=== PATIENT | female | born 1995 | race Caucasian/White ===

== ENCOUNTER 2016-11-22 15:41 | Observation (INO) | payer OTHER ==
[2016-11-22] MEDS ORDERED: Lactated Ringers 1,000 ML IV ONE (17:18)
[2016-11-22 17:52] LABS: BASOPHIL % 0.3 % (0.0-0.4); Eosinophil % 0.9 % (0.00-5.0); Granulocytes % 61.6 % (36.0-66.0); Lymphocytes % 30.3 % (24.0-44.0); Mean Cell Volume 83.6 fl (78-100); Mean Corpuscular Hemoglobin 26.8 pg (26-32); Mean Platelet Volume 10.3 fl (6-9.5); Monocytes % 6.9 % (0.0-12.0); Platelet Count 236 K/mm3 (150-450); Red Blood Count 4.14 M/mm3 (4.1-5.4); Red Cell Distribution Width 14.3 % (11.5-14.0); White Blood Count 10.2 K/mm3 (4.0-10.5)
[2016-11-22] MEDS ORDERED: Lactated Ringers 1,000 ML IV SCH (18:00)
[2016-11-22 18:18] LABS: ALBUMIN 2.9 g/dL (3.4-5.0); ALKALINE PHOSPHATASE 163 U/L (46-116); BILIRUBIN,TOTAL 0.3 mg/dL (0.2-1.0); BLOOD UREA NITROGEN 4 mg/dL (9-20); CHLORIDE 105 mEq/L (98-107); Carbon Dioxide 20.4 mEq/L (21-32); Glucose 98 MG/DL (70-110); Potassium 3.6 mEq/L (3.5-5.1); SGOT/AST 18 U/L (15-37); SGPT/ALT 10 U/L (12-78); SODIUM 137 mEq/L (136-145); Total Protein 7.5 gm/dL (6.4-8.2)
[2016-11-22 20:09] VITALS: BP 114/85; PULSE 88
== END 2016-11-22 21:25 | disposition home or self-care (01) ==
LOC: OB 15:41
PROVIDERS: ADMIT Family Medicine; ATTEND Family Medicine
DX: Z34.83 Encounter for supervision of other normal pregnancy, third trimester (principal)
CPT/HCPCS: 36415; 80053; 80307; 85025; G0378

== ENCOUNTER 2016-11-28 22:08 | Observation (INO) | payer OTHER ==
[2016-11-28 22:45] VITALS: BP 126/80; PULSE 113
== END 2016-11-28 23:45 | disposition home or self-care (01) ==
LOC: OB 22:08
PROVIDERS: ADMIT Family Medicine; ATTEND Family Medicine
DX: Z34.83 Encounter for supervision of other normal pregnancy, third trimester (principal)
CPT/HCPCS: G0378

== ENCOUNTER 2016-12-01 14:07 | Observation (INO) | payer OTHER ==
[2016-12-01 19:50] VITALS: BP 98/56; PULSE 85
== END 2016-12-01 19:35 | disposition home or self-care (01) ==
LOC: MED SURG 14:07
PROVIDERS: ADMIT Family Medicine; ATTEND Family Medicine
DX: Z34.83 Encounter for supervision of other normal pregnancy, third trimester (principal)
CPT/HCPCS: G0378

== ENCOUNTER 2016-12-14 09:02 | Inpatient (IN) | payer OTHER ==
[2016-12-14] MEDS ORDERED: BRETHINE 1 MG/ML SQ PRN (17:22)
[2016-12-14] MEDS ORDERED: XYLOCAINE 1% HCL 20 ML MDV IJ PRN (17:27)
[2016-12-14 19:28] LABS: BASOPHIL % 0.2 % (0.0-0.4); Eosinophil % 0.5 % (0.00-5.0); Granulocytes % 71.8 % (36.0-66.0); Lymphocytes % 22.1 % (24.0-44.0); Mean Corpuscular Hemoglobin 26.2 pg (26-32); Mean Platelet Volume 10.3 fl (6-9.5); Monocytes % 5.4 % (0.0-12.0); Platelet Count 232 K/mm3 (150-450); Red Blood Count 4.12 M/mm3 (4.1-5.4); White Blood Count 12.1 K/mm3 (4.0-10.5)
[2016-12-14] MEDS ORDERED: Cervidil 10 MG VAG SCH (22:00)
[2016-12-15] MEDS: Lactated Ringers 1,000 ML IV SCH (06:05)
[2016-12-15] MEDS: PITOCIN 30 UNITS/ LR 500 ML 30 UNITS/500 ML IV.SOLN. IV SCH (06:05)
[2016-12-15] MEDS ORDERED: Ephedrine Sulfate 50 MG/ML IV PRN (09:20)
[2016-12-15] MEDS ORDERED: Lactated Ringers 1,000 ML IV ONE (09:20)
[2016-12-15] MEDS ORDERED: OB EPIDURAL NAROPIN/SUFENTANIL IN NACL EPIDURAL PRN (09:20)
[2016-12-15] MEDS ORDERED: Restoril 15 MG PO PRN (12:32)
[2016-12-15] MEDS ORDERED: Ambien 10 MG PO PRN (12:32)
[2016-12-15] MEDS ORDERED: TYLENOL EXTRA STRENGTH 500 MG PO PRN (12:32)
[2016-12-15] MEDS ORDERED: Dermoplast Spray TP PRN (12:32)
[2016-12-15] MEDS ORDERED: CORTISONE 1% CREAM TP PRN (12:32)
[2016-12-15] MEDS ORDERED: Tylenol #3 Tablet PO PRN (12:32)
[2016-12-15] MEDS ORDERED: TUCKS TP PRN (12:32)
[2016-12-15] MEDS ORDERED: LANSINOH 40 GM TOP PRN (12:32)
[2016-12-15] MEDS: Colace 100 MG PO SCH (21:07)
[2016-12-16] MEDS: MOTRIN 400 MG PO PRN ×3 (01:54→20:58)
[2016-12-16 05:54] LABS: BASOPHIL % 0.2 % (0.0-0.4); Granulocytes % 59.7 % (36.0-66.0); Lymphocytes % 28.6 % (24.0-44.0); Mean Cell Volume 83.9 fl (78-100); Mean Corpuscular Hemoglobin 26.3 pg (26-32); Mean Platelet Volume 10.4 fl (6-9.5); Monocytes % 10.5 % (0.0-12.0); Platelet Count 175 K/mm3 (150-450); Red Blood Count 3.42 M/mm3 (4.1-5.4); Red Cell Distribution Width 14.9 % (11.5-14.0); White Blood Count 9.2 K/mm3 (4.0-10.5)
[2016-12-16] MEDS: PITOCIN 30 UNITS/ LR 500 ML 500 ML IV SCH ×2 (07:48→07:49)
[2016-12-16] MEDS: PITOCIN 30 UNITS/ LR 500 ML 30 UNITS/500 ML IV.SOLN. IV SCH (07:49)
[2016-12-16] MEDS: Lactated Ringers 1,000 ML IV SCH ×3 (07:49→07:51)
[2016-12-16] MEDS: FERREX 150 PO SCH (09:29)
[2016-12-16] MEDS: Colace 100 MG PO SCH (09:29)
[2016-12-17] MEDS: MOTRIN 400 MG PO PRN (05:45)
[2016-12-17] MEDS: Colace 100 MG PO SCH ×2 (06:03→08:36)
[2016-12-17] MEDS: FERREX 150 PO SCH (08:36)
--- NOTE | 2016-12-17 11:46 | PCM.DS ---
Discharge Summary Date of Admission: 12/15/16 09:02 Admitting Physician: KING OVIEDO Primary Care Provider: KING OVIEDO Allergies Allergies Cephalosporins Allergy (Verified 07/03/15 15:56) Hospital Summary - Hospital Course Hospital Course: patient delivered a viable female infant at 39 wks with no complications. doing great , mild lochia, pain is minimal. she is and well bonded with infant. - Vitals & Intake/Output Vital Signs: Vital Signs Temperature 97.6 F 12/17/16 08:00 Pulse Rate 76 12/17/16 08:00 Respiratory Rate 18 12/17/16 08:00 Blood Pressure 116/78 12/17/16 08:00 O2 Sat by Pulse Oximetry Intake & Output: Intake & Output 12/14/16 12/15/16 12/16/16 12/17/16 11:59 11:59 11:59 11:59 Intake Total 1590 Balance 1590 Weight 86.183 kg - Lab Result Diagrams: 12/16/16 05:00 Discharge Exam General Appearance: no apparent distress, alert Respiratory Exam: normal breath sounds, lungs clear, No respiratory distress Cardiovascular Exam: regular rate/rhythm, normal heart sounds Gastrointestinal/Abdomen Exam: soft, No tenderness, No mass Extremity Exam: normal inspection, normal range of motion Final Diagnosis/Problem List - Final Discharge Diagnosis/Problem (1) Vaginal delivery Current Visit: No Status: Acute (2) () Current Visit: No Status: Acute - Discharge Disposition: Home, Self-Care Condition: Stable Prescriptions: No Action Vitamins/Fe Sulf/FA [ Tablet] 1 tab PO DAILY Ranitidine HCl [Zantac 75] 1 tab PO DAILY
[2016-12-17 12:28] VITALS: BP 114/64; PULSE 82
== END 2016-12-17 12:55 | disposition home or self-care (01) | DRG 775 ==
LOC: OB 09:02 → UNDOADMOB 16:57 → OB 16:57 → OBSVTOIN 12-15 09:02
PROVIDERS: ADMIT Family Medicine; ATTEND Family Medicine
PROC: 10E0XZZ Delivery of Products of Conception, External Approach (ICD-10-PCS; principal; 2016-12-15)
DX: O80 Encounter for full-term uncomplicated delivery (principal); Z3A.39 39 weeks gestation of pregnancy; Z37.0 Single live birth
CPT/HCPCS: 01967; 36415; 80307; 85025; G0378; J2590; J2795; A9270-GY

== ENCOUNTER 2019-01-17 08:54 | Observation (INO) | payer OTHER ==
[2019-01-17 09:28] LABS: Appearance CLOUDY (CLEAR); Bacteria FEW /HPF (NEGATIVE); Bilirubin NEGATIVE (NEGATIVE); Blood NEGATIVE Ery/ul (0-5); Epithelial Cells FEW /HPF (FEW); Glucose NEGATIVE (NEGATIVE); Ketones MODERATE (NEGATIVE); Leukocyte Esterase LARGE (NEGATIVE); Mucus SLIGHT /HPF (NEGATIVE); Nitrite NEGATIVE (NEGATIVE); Non-Squamous Epithelial Cells FEW /HPF (FEW); Protein,Urine Dip 30 (Negative); Specific Gravity 1.018 (1.005-1.025); Urobilinogen NEGATIVE mg/dL (0-1)
[2019-01-17 09:37] LABS: Amphetamine,Urine NEGATIVE (NEGATIVE); Barbiturate,Urine NEGATIVE (NEGATIVE); Benzodiazepine,Urine NEGATIVE (NEGATIVE); Cocaine,Urine NEGATIVE (NEGATIVE); Methadone,Urine NEGATIVE (NEGATIVE); Opiate,Urine NEGATIVE (NEGATIVE); PCP,Urine NEGATIVE (NEGATIVE); THC,Urine NEGATIVE (NEGATIVE)
[2019-01-17] MEDS ORDERED: Lactated Ringers 1,000 ML IV ONE ×2 (09:59→16:40)
[2019-01-17] MEDS ORDERED: Unasyn 3GM / NaCl 100ML 3 GM/100 ML IVPB IV ONE (11:00)
[2019-01-17] MEDS: Lactated Ringers 1,000 ML IV SCH ×2 (13:29→16:48)
[2019-01-17] MEDS ORDERED: Zofran 4 MG/2 ML VIAL IV STA (13:30)
[2019-01-17] MEDS ORDERED: BRETHINE 1 MG/ML SQ ONE (13:30)
[2019-01-17 18:16] VITALS: BP 112/57; PULSE 126
== END 2019-01-17 19:14 | disposition home or self-care (01) ==
LOC: OB 08:54
PROVIDERS: ADMIT Family Medicine; ATTEND Family Medicine
DX: Z34.83 Encounter for supervision of other normal pregnancy, third trimester (principal)
CPT/HCPCS: 80307; 81001; 87086; G0378; J0295; J2405

== ENCOUNTER 2019-02-18 05:03 | Inpatient (IN) | payer OTHER ==
[~2019-02-18 05:03] MED LIST: BRETHINE 1 MG/ML SQ PRN; Lactated Ringers 1,000 ML IV SCH; PITOCIN 30 UNITS/ LR 500 ML 500 ML IV SCH; XYLOCAINE 1% HCL 20 ML MDV IJ PRN
[2019-02-18 06:01] LABS: BASOPHIL % 0.3 % (0.0-0.4); Basophil (Absolute #) 0.02 (0-0.4); Eosinophil % 1.2 % (0.00-5.0); Eosinophil (Absolute #) 0.09 (0-0.5); Granulocytes % 61.3 % (36.0-66.0); Hematocrit 30.6 % (35-47); Hemoglobin 9.5 gm/dl (12.0-16.0); Lymphocytes % 30.7 % (24.0-44.0); Mean Cell Volume 80.7 fl (78-100); Mean Platelet Volume 10.2 fl (6-9.5); Monocyte (Absolute #) 0.49 (0.0-1.3); Monocytes % 6.5 % (0.0-12.0); Platelet Count 219 K/mm3 (150-450); Red Blood Count 3.79 M/mm3 (4.1-5.4); Red Cell Distribution Width 15.8 % (11.5-14.0); White Blood Count 7.5 K/mm3 (4.0-10.5)
[2019-02-18 06:25] LABS: Amphetamine,Urine NEGATIVE (NEGATIVE); Barbiturate,Urine NEGATIVE (NEGATIVE); Benzodiazepine,Urine NEGATIVE (NEGATIVE); Cocaine,Urine NEGATIVE (NEGATIVE); Methadone,Urine NEGATIVE (NEGATIVE); Opiate,Urine NEGATIVE (NEGATIVE); PCP,Urine NEGATIVE (NEGATIVE); THC,Urine NEGATIVE (NEGATIVE)
[2019-02-18] MEDS ORDERED: OB EPIDURAL NAROPIN/SUFENTANIL IN NACL EPIDURAL PRN (09:14)
[2019-02-18] MEDS ORDERED: Ephedrine Sulfate 50 MG/ML IV PRN (09:14)
[2019-02-18] MEDS ORDERED: Lactated Ringers 1,000 ML IV ONE (09:14)
[2019-02-18] MEDS ORDERED: XYLOCAINE 2%/Epi 1:200000 20ML VIAL MPF ONE (09:34)
[2019-02-18 10:34] VITALS: O2SAT 100
[2019-02-18] MEDS ORDERED: Restoril 15 MG PO PRN (11:28)
[2019-02-18] MEDS ORDERED: Anucort-HC SUPPOSITORY PR PRN (11:28)
[2019-02-18] MEDS ORDERED: NORCO 5/325 MG PO PRN (11:28)
[2019-02-18] MEDS ORDERED: Mylicon 80MG PO PRN (11:28)
[2019-02-18] MEDS ORDERED: Dulcolax 10 MG SUPP PR PRN (11:28)
[2019-02-18] MEDS ORDERED: TUCKS TP PRN (11:28)
[2019-02-18] MEDS ORDERED: Dermoplast Spray TP PRN (11:28)
[2019-02-18] MEDS ORDERED: TYLENOL EXTRA STRENGTH 500 MG PO PRN (11:28)
[2019-02-18] MEDS ORDERED: LANSINOH 40 GM TOP PRN (11:28)
[2019-02-18] MEDS ORDERED: CORTISONE 1% CREAM TP PRN (11:28)
[2019-02-18] MEDS ORDERED: Colace 100 MG ONE (19:34)
[2019-02-18] MEDS: MOTRIN 400 MG PO PRN (19:35)
[2019-02-18] MEDS: Colace 100 MG PO SCH (19:35)
[2019-02-19] MEDS: MOTRIN 400 MG PO PRN ×3 (05:16→17:38)
[2019-02-19 06:50] LABS: BASOPHIL % 0.5 % (0.0-0.4); Basophil (Absolute #) 0.05 (0-0.4); Eosinophil % 1.5 % (0.00-5.0); Eosinophil (Absolute #) 0.14 (0-0.5); Granulocyte Absolute (ANC) 5.26 (1.4-6.9); Granulocytes % 56.8 % (36.0-66.0); Hemoglobin 8.1 gm/dl (12.0-16.0); Lymphocyte (Absolute #) 2.98 (1.0-4.6); Lymphocytes % 32.2 % (24.0-44.0); Mean Cell Volume 81.6 fl (78-100); Mean Platelet Volume 10.1 fl (6-9.5); Monocyte (Absolute #) 0.83 (0.0-1.3); Platelet Count 215 K/mm3 (150-450); Red Blood Count 3.31 M/mm3 (4.1-5.4); Red Cell Distribution Width 15.6 % (11.5-14.0); White Blood Count 9.3 K/mm3 (4.0-10.5)
[2019-02-19 06:54] LABS: Mean Corpuscular Hemoglobin 24.4 pg (26-32)
[2019-02-19] MEDS: Colace 100 MG PO SCH ×2 (08:37→23:02)
[2019-02-19] MEDS: FERREX 150 PO SCH (08:37)
[2019-02-20] MEDS: MOTRIN 400 MG PO PRN (00:45)
--- NOTE | 2019-02-20 09:25 | PCM.DS ---
Discharge Summary Date of Admission: 02/18/19 05:03 Admitting Physician: KING OVIEDO Primary Care Provider: KING OVIEDO Allergies Allergies Cephalosporins Allergy (Verified 01/17/19 10:12) Hospital Summary - Hospital Course Hospital Course: patient was admitted and had at 39 wks elective induction, no complications with delivery. well and well bonded with male infant. - Vitals & Intake/Output Vital Signs: Vital Signs Temperature 98.1 F 02/20/19 02:00 Pulse Rate 73 02/20/19 02:00 Respiratory Rate 18 02/20/19 02:00 Blood Pressure 108/64 02/20/19 02:00 O2 Sat by Pulse Oximetry 100 02/18/19 11:00 Intake & Output: Intake & Output 02/17/19 02/18/19 02/19/19 02/20/19 11:59 11:59 11:59 11:59 Intake Total 3242 Balance 3242 Weight 81.647 kg - Lab Result Diagrams: 02/19/19 06:15 Discharge Exam General Appearance: no apparent distress, alert Respiratory Exam: normal breath sounds, lungs clear, No respiratory distress Cardiovascular Exam: regular rate/rhythm, normal heart sounds Gastrointestinal/Abdomen Exam: soft, No tenderness, No mass Extremity Exam: normal inspection, normal range of motion Skin Exam: normal color, warm, dry Final Diagnosis/Problem List - Final Discharge Diagnosis/Problem (1) Vaginal delivery Current Visit: No Status: Acute Code(s): O80 - ENCOUNTER FOR FULL-TERM UNCOMPLICATED DELIVERY (2) (infant) Current Visit: No Status: Acute Code(s): Z78.9 - OTHER SPECIFIED HEALTH STATUS - Discharge Disposition: Home, Self-Care Condition: Stable Prescriptions: Continue Vitamins/Fe Sulf/FA [ Tablet] 1 tab PO DAILY Ranitidine HCl [Zantac 75] 1 tab PO DAILY PRN PRN Reason: heartburn Follow up with: KING OVIEDO MD [Primary Care Provider] - 1 Week
[2019-02-20] MEDS: FERREX 150 PO SCH (11:46)
[2019-02-20 15:49] VITALS: BP 112/70; PULSE 78
== END 2019-02-20 15:30 | disposition home or self-care (01) | DRG 807 ==
LOC: OB 05:03
PROVIDERS: ADMIT Family Medicine; ATTEND Family Medicine
PROC: 10E0XZZ Delivery of Products of Conception, External Approach (ICD-10-PCS; principal; 2019-02-18)
DX: O80 Encounter for full-term uncomplicated delivery (principal); Z37.0 Single live birth; Z3A.39 39 weeks gestation of pregnancy
CPT/HCPCS: 36415; 80307; 85025; G0378; J2590; J2795; A9270-GY

== ENCOUNTER 2020-09-04 10:54 | Observation (INO) | payer OTHER ==
[2020-09-04 12:15] LABS: Appearance SLIGHTLY CLOUDY (CLEAR); Bilirubin NEGATIVE (NEGATIVE); Blood NEGATIVE Ery/ul (0-5); Epithelial Cells RARE /HPF (FEW); Glucose NEGATIVE (NEGATIVE); Ketones NEGATIVE (NEGATIVE); Leukocyte Esterase SMALL (NEGATIVE); Mucus SLIGHT /HPF (NEGATIVE); Nitrite NEGATIVE (NEGATIVE); Protein,Urine Dip NEGATIVE (Negative); Specific Gravity 1.021 (1.005-1.025); Urobilinogen NEGATIVE mg/dL (0-1); WBC 0-2 /HPF (0-5)
--- NOTE | 2020-09-04 12:30 | XRAY ---
Indication: labor. Evaluate cervical length. Limited OB ultrasound demonstrates single viable intrauterine with heart rate 163 BPM. Cervix is closed and measures 3.8 cm in length.
[2020-09-04 15:23] VITALS: BP 108/57; PULSE 74; O2SAT 98
== END 2020-09-04 15:30 | disposition home or self-care (01) ==
LOC: OB 10:54
PROVIDERS: ADMIT Family Medicine; ATTEND Family Medicine
DX: Z34.83 Encounter for supervision of other normal pregnancy, third trimester (principal); Z3A.32 32 weeks gestation of pregnancy
CPT/HCPCS: 59025; 76815; 81001; 82731; G0378; 81003

== ENCOUNTER 2020-10-01 06:32 | Observation (INO) | payer OTHER ==
[2020-10-01 07:10] VITALS: O2SAT 100
[2020-10-01 07:41] LABS: Appearance CLEAR (CLEAR); Bilirubin NEGATIVE (NEGATIVE); Blood NEGATIVE Ery/ul (0-5); Epithelial Cells RARE /HPF (FEW); Glucose NEGATIVE (NEGATIVE); Ketones NEGATIVE (NEGATIVE); Leukocyte Esterase NEGATIVE (NEGATIVE); Mucus SLIGHT /HPF (NEGATIVE); Nitrite NEGATIVE (NEGATIVE); Protein,Urine Dip NEGATIVE (Negative); Specific Gravity 1.017 (1.005-1.025); Urobilinogen NEGATIVE mg/dL (0-1)
[2020-10-01 07:44] LABS: Amphetamine,Urine NEGATIVE (NEGATIVE); Barbiturate,Urine NEGATIVE (NEGATIVE); Benzodiazepine,Urine NEGATIVE (NEGATIVE); Cocaine,Urine NEGATIVE (NEGATIVE); Methadone,Urine NEGATIVE (NEGATIVE); Opiate,Urine NEGATIVE (NEGATIVE); PCP,Urine NEGATIVE (NEGATIVE); THC,Urine NEGATIVE (NEGATIVE)
[2020-10-01 09:50] VITALS: BP 115/67; PULSE 99
== END 2020-10-01 09:40 | disposition home or self-care (01) ==
LOC: OB 06:32
PROVIDERS: ADMIT Family Medicine; ATTEND Family Medicine
DX: Z34.83 Encounter for supervision of other normal pregnancy, third trimester (principal)
CPT/HCPCS: 80307; 81001; G0378

== ENCOUNTER 2020-10-14 08:49 | Inpatient (IN) | payer OTHER ==
[2020-10-14] MEDS ORDERED: Zofran 4 MG/2 ML VIAL IV PRN (10:18)
[2020-10-14] MEDS ORDERED: Phenergan 25 MG INJ IV PRN (10:18)
[2020-10-14] MEDS ORDERED: XYLOCAINE 1% HCL 20 ML MDV IJ PRN (10:18)
[2020-10-14] MEDS ORDERED: Lactated Ringers 1,000 ML IV ONE (10:24)
[2020-10-14] MEDS ORDERED: Ephedrine Sulfate 50 MG/ML IV PRN (10:24)
[2020-10-14] MEDS ORDERED: PITOCIN 30 UNITS/ LR 500 ML 30 UNITS/500 ML IV.SOLN. IV SCH ×2 (10:30→14:00)
[2020-10-14 10:59] LABS: Amphetamine,Urine NEGATIVE (NEGATIVE); Barbiturate,Urine NEGATIVE (NEGATIVE); Benzodiazepine,Urine NEGATIVE (NEGATIVE); Cocaine,Urine NEGATIVE (NEGATIVE); Methadone,Urine NEGATIVE (NEGATIVE); Opiate,Urine NEGATIVE (NEGATIVE); PCP,Urine NEGATIVE (NEGATIVE); THC,Urine NEGATIVE (NEGATIVE)
[2020-10-14 11:16] LABS: Absolute Neutrophil Ct (ANC) 7.13 (1.4-6.9); BASOPHIL % 0.4 % (0.0-0.4); Basophil (Absolute #) 0.04 (0-0.4); Eosinophil % 1.4 % (0.00-5.0); Eosinophil (Absolute #) 0.14 (0-0.5); Hematocrit 33.2 % (35-47); Hemoglobin 10.1 gm/dl (12.0-16.0); Lymphocyte (Absolute #) 2.32 (1.0-4.6); Lymphocytes % 22.7 % (24.0-44.0); Mean Cell Volume 79.8 fl (78-100); Mean Corpuscular Hemoglobin 24.3 pg (26-32); Mean Corpuscular Hgb Concent. 30.4 g/dl (32-36); Mean Platelet Volume 10.2 fl (7.5-11.0); Monocyte (Absolute #) 0.59 (0.0-1.3); Monocytes % 5.8 % (0.0-12.0); Neutrophil % 69.7 % (36.0-66.0); Platelet Count 258 K/mm3 (150-450); Red Blood Count 4.16 M/mm3 (4.1-5.4); Red Cell Distribution Width 15.8 % (11.5-14.0); White Blood Count 10.2 K/mm3 (4.0-10.5)
[2020-10-14] MEDS ORDERED: CLINDAMYCIN-D5W 900 MG/50 ML*** 900 MG/50 ML BAG IV ONE (11:19)
[2020-10-14] MEDS: Lactated Ringers 1,000 ML IV SCH ×2 (11:28→20:58)
[2020-10-14] MEDS: CLINDAMYCIN-D5W 900 MG/50 ML*** 900 MG/50 ML BAG IV SCH ×2 (11:28→19:55)
[2020-10-14] MEDS: OB EPIDURAL NAROPIN/SUFENTANIL IN NACL EPIDURAL PRN (12:30)
[2020-10-14 20:15] LABS: Appearance CLEAR (CLEAR); Bilirubin NEGATIVE (NEGATIVE); Blood SMALL Ery/ul (0-5); Glucose NEGATIVE (NEGATIVE); Ketones SMALL (NEGATIVE); Leukocyte Esterase NEGATIVE (NEGATIVE); Mucus SLIGHT /HPF (NEGATIVE); Nitrite NEGATIVE (NEGATIVE); Protein,Urine Dip NEGATIVE (Negative); Specific Gravity 1.013 (1.005-1.025); Urobilinogen NEGATIVE mg/dL (0-1)
[2020-10-15] MEDS: Lactated Ringers 1,000 ML IV SCH (02:10)
[2020-10-15] MEDS: OB EPIDURAL NAROPIN/SUFENTANIL IN NACL EPIDURAL PRN (02:11)
[2020-10-15] MEDS ORDERED: SOD CITRATE-CITRIC ACID SOLN PO ONE ×2 (05:54→06:18)
[2020-10-15] MEDS ORDERED: Reglan 10 MG/2 ML IV SCH (06:00)
[2020-10-15] MEDS ORDERED: Pepcid 20 MG VIAL IV SCH (06:00)
[2020-10-15] MEDS: CLINDAMYCIN-D5W 900 MG/50 ML*** 900 MG/50 ML BAG IV SCH ×2 (06:28→15:51)
[2020-10-15] MEDS ORDERED: Lactated Ringers 1,000 ML IV ONE ×2 (06:32→07:35)
[2020-10-15 07:00] LABS: INR 1.09 (0.8-3.0); PROTIME 12.3 SECONDS (9.95-12.35)
[2020-10-15 07:03] LABS: PTT 24.8 SECONDS (25.3-37.0)
[2020-10-15] MEDS ORDERED: Astramorph-Pf 5 MG/10 ML ONE (07:04)
[2020-10-15] MEDS ORDERED: Pitocin 10 UNITS/ML ONE ×3 (07:06→07:39)
[2020-10-15] MEDS ORDERED: Zofran 4 MG/2 ML VIAL ONE (07:07)
[2020-10-15] MEDS ORDERED: XYLOCAINE 2%/Epi 1:200000 20ML VIAL MPF ONE (07:09)
[2020-10-15 07:15] LABS: ABO TYPING A; Antibody Screen NEGATIVE (NEGATIVE); RH TYPING POSITIVE
[2020-10-15] MEDS ORDERED: MARCAINE 0.5%-EPI 1:200,000 VL IJ ONE ×2 (07:23)
[2020-10-15] MEDS ORDERED: DEMEROL 50 MG ONE (07:35)
--- NOTE | 2020-10-15 08:26 | OP ---
SURGERY DATE/TIME: 10/15/2020 0644 PREOPERATIVE DIAGNOSES: 1) Failure to progress in labor. 2) Term intrauterine . POSTOPERATIVE DIAGNOSES: 1) Failure to progress in labor. 2) Term intrauterine . PROCEDURE: Primary low transverse section. SURGEON: Derick Kerr M.D. ANESTHESIA: Epidural by Rogelio Umana CRNA. ESTIMATED BLOOD LOSS: 400 cc. URINE OUTPUT: 200 cc clear straw-colored urine. SPECIMEN: None. DESCRIPTION OF PROCEDURE: After informed, written consent was obtained, the patient was taken to the OR. She had a previously placed laboring epidural dosed per anesthesia. Prepped and draped in the usual sterile fashion. After adequate level of anesthesia was assessed, a low transverse skin incision was made by knife and carried down through the subcutaneous fat to the level of the fascia. The fascia was nicked on both sides of the midline and extended horizontal using curved Regalado scissors. The superior free edge of the fascia was then grasped with Alaina clamps and the underlying rectus muscles were dissected free. The same was repeated inferiorly. The peritoneal cavity was opened and extended horizontal and a bladder flap was created and reflected over the lower uterine segment. Horizontal uterine incision was made by knife and carried down to the level of the amniotic membranes which were carefully opened. A viable female infant with a strong cry immediately upon delivery and was delivered from the vertex presentation. She was straight occiput-posterior (OP) with a loose nuchal cord x1. The cord was clamped and cut. She was handed off to the awaiting nursery team. The placenta was manually extracted. The uterus was exteriorized. The uterine cavity was sponge curetted clean with a lap sponge and the uterine incision was closed with #1 chromic in a running locked fashion. Good closure and good hemostasis were achieved. The posterior cul-de-sac was wiped free of blood and clot. The uterus was returned to the peritoneal cavity. Lateral gutters were wiped free of blood and clot. Again, the uterine incision was carefully inspected and noted to be hemostatic with good closure. Next, the fascia was closed with 0 Vicryl in running fashion with good closure and good hemostasis were achieved at that level as well. The subcutaneous fat was irrigated with warm, sterile saline and any areas of bleeding were cauterized with electrocautery. Finally, the skin layer was closed with 4-0 undyed Vicryl in a running subcuticular fashion. Steri-Strips and occlusive dressing were placed over the incision. The patient was transferred to the recovery room in good condition.
[2020-10-15] MEDS ORDERED: CLARITIN 10 MG PO PRN (08:30)
[2020-10-15] MEDS ORDERED: Dextrose 5%-Lr IV Solution 1000 ML 1,000 ML IV SCH (08:30)
[2020-10-15] MEDS ORDERED: Anucort-HC SUPPOSITORY PR PRN (08:38)
[2020-10-15] MEDS ORDERED: CORTISONE 1% CREAM TP PRN (08:38)
[2020-10-15] MEDS ORDERED: Dulcolax 10 MG SUPP PR PRN (08:38)
[2020-10-15] MEDS ORDERED: DEMEROL 50 MG IV PRN (08:38)
[2020-10-15] MEDS ORDERED: Dermoplast Spray TP PRN (08:38)
[2020-10-15] MEDS ORDERED: LANSINOH 40 GM TOP PRN (08:38)
[2020-10-15] MEDS: TYLENOL EXTRA STRENGTH 500 MG PO PRN ×2 (13:23→21:14)
[2020-10-15] MEDS: MOTRIN 400 MG PO PRN ×2 (15:42→21:15)
[2020-10-16] MEDS: TYLENOL EXTRA STRENGTH 500 MG PO PRN ×4 (02:21→22:18)
[2020-10-16] MEDS: MOTRIN 400 MG PO PRN ×3 (04:37→19:05)
[2020-10-16 05:00] LABS: Absolute Neutrophil Ct (ANC) 4.53 (1.4-6.9); BASOPHIL % 0.4 % (0.0-0.4); Basophil (Absolute #) 0.03 (0-0.4); Eosinophil % 1.4 % (0.00-5.0); Eosinophil (Absolute #) 0.11 (0-0.5); Hematocrit 23.9 % (35-47); Lymphocyte (Absolute #) 2.25 (1.0-4.6); Mean Cell Volume 81.6 fl (78-100); Mean Corpuscular Hemoglobin 24.2 pg (26-32); Mean Corpuscular Hgb Concent. 29.7 g/dl (32-36); Mean Platelet Volume 9.6 fl (7.5-11.0); Monocyte (Absolute #) 0.84 (0.0-1.3); Monocytes % 10.8 % (0.0-12.0); Neutrophil % 58.4 % (36.0-66.0); Platelet Count 168 K/mm3 (150-450); Red Blood Count 2.93 M/mm3 (4.1-5.4); Red Cell Distribution Width 15.7 % (11.5-14.0); White Blood Count 7.8 K/mm3 (4.0-10.5)
[2020-10-16 05:06] LABS: Hemoglobin 7.1 gm/dl (12.0-16.0)
[2020-10-16] MEDS: FERREX 150 PO SCH (09:41)
[2020-10-16] MEDS: Colace 100 MG PO SCH ×2 (09:41→22:18)
[2020-10-16] MEDS: Mylicon 80MG PO PRN (19:06)
[2020-10-17] MEDS: Mylicon 80MG PO PRN (01:58)
[2020-10-17] MEDS: MOTRIN 400 MG PO PRN ×3 (01:59→14:16)
[2020-10-17] MEDS: TYLENOL EXTRA STRENGTH 500 MG PO PRN ×2 (08:16→14:16)
[2020-10-17 09:08] VITALS: O2SAT 98
[2020-10-17] MEDS: Colace 100 MG PO SCH (11:10)
[2020-10-17] MEDS: FERREX 150 PO SCH (11:10)
--- NOTE | 2020-10-17 17:15 | PCM.DS ---
Discharge Summary Date of Admission: 10/14/20 09:10 Admitting Physician: KING OVIEDO Consults: Consults on Case 10/15/20 08:30 Notify Anesthesia Provider PRN Primary Care Provider: KING OVIEDO Allergies Allergies Cephalosporins Allergy (Verified 09/04/20 11:30) Hospital Summary - Hospital Course Hospital Course: patient arrived in spont labor, failed to progress and had primary , post op hemoglobin 7.1, no symptoms. doing great on tylenol and ibuprofen - Vitals & Intake/Output Vital Signs: Vital Signs Temperature 97.6 F 10/17/20 02:00 Pulse Rate 92 H 10/17/20 08:00 Respiratory Rate 18 10/17/20 08:00 Blood Pressure 108/72 10/17/20 08:00 O2 Sat by Pulse Oximetry 98 10/17/20 08:00 Intake & Output: Intake & Output 10/15/20 10/16/20 10/17/20 10/18/20 11:59 11:59 11:59 11:59 Intake Total 8400 8922 920 Output Total 450 3750 Balance 7950 5172 920 Weight 88.451 kg - Lab Result Diagrams: 10/16/20 05:01 Micro Results-Entire Visit: Microbiology 10/14/20 20:05 Urine Culture - Final Urine, Indwelling Catheter NO GROWTH - Procedures and Test Procedures and Tests throughout Hospitalization: Therapy Orders & Screens 10/15/20 07:29 Standby ROUTINE Comment: Diagnosis: IUP Discharge Exam General Appearance: no apparent distress, alert Respiratory Exam: normal breath sounds, lungs clear, No respiratory distress Cardiovascular Exam: regular rate/rhythm, normal heart sounds Gastrointestinal/Abdomen Exam: soft, normal bowel sounds, other (incision c/d/i) Extremity Exam: normal inspection, normal range of motion Skin Exam: normal color, warm, dry Final Diagnosis/Problem List - Final Discharge Diagnosis/Problem (1) delivery delivered Current Visit: Yes Status: Acute Code(s): O82 - ENCOUNTER FOR DELIVERY WITHOUT INDICATION - Discharge Disposition: Home, Self-Care Condition: Stable Prescriptions: [place] Polysaccharides Complex [Ferrex 150] 150 mg PO DAILY #30 capsule Continue Vitamins/Fe Sulf/FA [ Tablet] 1 tab PO DAILY Calcium Carbonate [Tums] 200 mg PO DAILY PRN PRN PRN Reason: heartburn Instructions: Depression, ( Delivery) (DC), Breast Care for the Woman, Abdominal Binder, What to Watch for After You Have a Baby, Depression During and After , Taking Care of Yourself After You Have a Baby Additional Instructions: Call Dr Oviedo office on Monday morning to make a follow up appointment Follow up with: KING OVIEDO MD [Primary Care Provider] - Forms: OB Discharge Instructions
[2020-10-17 18:30] VITALS: BP 125/86; PULSE 88
== END 2020-10-17 17:30 | disposition home or self-care (01) | DRG 788 ==
LOC: OB 08:49 → OBSVTOIN 09:10 → OB 10-15 20:18
PROVIDERS: ADMIT Family Medicine; ATTEND Family Medicine
PROC: 10D00Z1 Extraction of Products of Conception, Low, Open Approach (ICD-10-PCS; principal; 2020-10-15)
DX: O62.0 Primary inadequate contractions (principal); Z3A.38 38 weeks gestation of pregnancy; Z37.0 Single live birth
CPT/HCPCS: 36415; 64488; 76937; 76942; 80307; 81001; 84112; 85025; 85610; 85730; 86850; 86900; 86901; 87086; 87340; 94799; 99140; G0378; J2175; J2274; J2405; J2590; J2795; L0625; A9270-GY

== ENCOUNTER 2020-11-01 20:57 | Emergency (ER) | payer OTHER ==
[2020-11-01] MEDS ORDERED: Sodium Chloride 0.9% 1000 ML 1,000 ML IV STA (21:10)
[2020-11-01] MEDS ORDERED: Zofran 4 MG/2 ML VIAL IV ONE (21:10)
[2020-11-01] MEDS ORDERED: Hydromorphone 1 mg/ml Injection IV ONE (21:10)
[2020-11-01 21:32] LABS: Absolute Neutrophil Ct (ANC) 4.68 (1.4-6.9); BASOPHIL % 0.4 % (0.0-0.4); Basophil (Absolute #) 0.03 (0-0.4); Eosinophil % 1.9 % (0.00-5.0); Eosinophil (Absolute #) 0.13 (0-0.5); Hematocrit 32.1 % (35-47); Hemoglobin 9.5 gm/dl (12.0-16.0); Lymphocyte (Absolute #) 1.46 (1.0-4.6); Lymphocytes % 21.3 % (24.0-44.0); Mean Cell Volume 79.9 fl (78-100); Mean Corpuscular Hemoglobin 23.6 pg (26-32); Mean Corpuscular Hgb Concent. 29.6 g/dl (32-36); Mean Platelet Volume 9.1 fl (7.5-11.0); Monocyte (Absolute #) 0.54 (0.0-1.3); Monocytes % 7.9 % (0.0-12.0); Neutrophil % 68.5 % (36.0-66.0); Platelet Count 316 K/mm3 (150-450); Red Blood Count 4.02 M/mm3 (4.1-5.4); Red Cell Distribution Width 16.1 % (11.5-14.0); White Blood Count 6.8 K/mm3 (4.0-10.5)
[2020-11-01 21:35] LABS: Amourphous Crystal FEW /HPF (NEGATIVE); Appearance CLEAR (CLEAR); Bacteria FEW /HPF (NEGATIVE); Bilirubin NEGATIVE (NEGATIVE); Blood LARGE Ery/ul (0-5); Glucose NEGATIVE (NEGATIVE); Ketones NEGATIVE (NEGATIVE); Leukocyte Esterase MODERATE (NEGATIVE); Nitrite NEGATIVE (NEGATIVE); Protein,Urine Dip NEGATIVE (Negative); Specific Gravity 1.011 (1.005-1.025); Urobilinogen NEGATIVE mg/dL (0-1)
[2020-11-01 21:43] LABS: ALKALINE PHOSPHATASE 79 U/L (38-126); AMYLASE 92 U/L (30-110); ANION GAP 12.8 MEQ/L (5-15); BLOOD UREA NITROGEN 13 mg/dL (7-17); CHLORIDE 102 mmol/L (98-107); Calcium 9.2 mg/dL (8.4-10.2); Carbon Dioxide 25 mmol/L (22-30); Creatinine 1 0.83 mg/dL (0.52-1.04); EST GLOMERULAR FILTRATION RATE > 60.0 ML/MIN; Glucose 101 mg/dL (74-106); LIPASE 88 U/L (23-300); Potassium 4.2 mmol/L (3.5-5.1); SGOT/AST 23 U/L (14-36); SGPT/ALT 16 U/L (0-35); SODIUM 135 mmol/L (137-145); Total Protein 7.9 g/dL (6.3-8.2)
[2020-11-01] MEDS ORDERED: Zofran 4 MG/2 ML VIAL ONE (22:00)
[2020-11-01] MEDS ORDERED: Sodium Chloride 0.9% 1000 ML 1,000 ML ONE (22:01)
[2020-11-01] MEDS ORDERED: Hydromorphone 1 mg/ml Injection ONE (22:01)
--- NOTE | 2020-11-01 23:01 | ERPHSYRPT ---
- History of Present Illness Time Seen by Provider: 11/01/20 22:55 Source: patient, family Exam Limitations: no limitations Patient Subjective Stated Complaint: Patient states " I had a on 10/14/20 and I have a hard knot under my incision that has been there since last Monday and the pain continues to get worse". Dr. Oviedo has ordered 2 different ATB and I quit taking 1st ATB Keflex because I am breast feeding so Dr. Oviedo ordered Bactrim and I have not started it yet because I wanted to talk with him first before taking". Triage Nursing Assessment: Patient arrived to ED and ambulated to room without difficulty. Patient A/O times 4. Patient able to follow directions without difficulty. Patient with R/T she is breast feeding. Patient lungs clear bilateral A/P throughout. Patient denies SOB. Patient denies chest pain. Patient states she has been feeling a little nauseated today but it has only started today. Physician History: pt has noted some tender nodules in her incisions 2 weeks SP C section and also now has fever. no other complaints at this time. Timing/Duration: day(s) Severity: moderate Associated Symptoms: fever Allergies/Adverse Reactions: Cephalosporins Allergy (Verified 11/01/20 21:14) Home Medications: Vitamins/Fe Sulf/FA [ Tablet] 1 tab PO DAILY 11/22/16 [History] Calcium Carbonate [Tums] 200 mg PO DAILY PRN PRN 09/04/20 [History] Hx Tetanus, Diphtheria Vaccination/Date Given: No Hx Influenza Vaccination/Date Given: Yes Hx Pneumococcal Vaccination/Date Given: No Immunizations Up to Date: Yes Travel Risk - International Travel Have you traveled outside of the country in past 3 weeks: No - Coronavirus Screening Symptoms: Fever Close contact with a COVID-19 positive Pt in past 14-21 Days: Yes - Review of Systems Constitutional: Fever, No Chills Eyes: No Symptoms Ears, Nose, & Throat: No Symptoms Respiratory: No Cough, No Dyspnea Cardiac: No Chest Pain, No Edema, No Syncope Abdominal/Gastrointestinal: No Abdominal Pain, No Nausea, No Vomiting, No Diarrhea Genitourinary Symptoms: No Dysuria Musculoskeletal: No Back Pain, No Neck Pain Skin: No Rash Neurological: No Dizziness, No Focal Weakness, No Sensory Changes Psychological: No Symptoms Endocrine: No Symptoms All Other Systems: Reviewed and Negative - Past Medical History Pertinent Past Medical History: No Neurological History: No Pertinent History ENT History: No Pertinent History Cardiac History: No Pertinent History Respiratory History: No Pertinent History Endocrine Medical History: No Pertinent History Musculoskeletal History: No Pertinent History GI Medical History: No Pertinent History History: No Pertinent History Psycho-Social History: No Pertinent History Female Reproductive Disorders: Other Other Medical History: D&C 01/24/16 - Past Surgical History Past Surgical History: Yes Neuro Surgical History: No Pertinent History Cardiac: No Pertinent History Respiratory: No Pertinent History Gastrointestinal: No Pertinent History Genitourinary: No Pertinent History Musculoskeletal: No Pertinent History Female Surgical History: No Pertinent History, Section Other Surgical History: tubes in ears as a child. D&C 01/24/16 - Social History Smoking Status: Never smoker Exposure to second hand smoke: No Alcohol Use: None Drug Use: none Patient Lives Alone: No Significant Family History: no pertinent family hx - Female History Hx Now: No - Nursing Vital Signs Nursing Vital Signs: Initial Vital Signs Temperature 102.9 F 11/01/20 21:11 Pulse Rate 116 H 11/01/20 21:11 Respiratory Rate 18 11/01/20 21:11 Blood Pressure 122/79 11/01/20 21:11 O2 Sat by Pulse Oximetry 98 11/01/20 21:11 Pain Scale Pain Intensity 5 - Physical Exam General Appearance: no apparent distress, alert Eye Exam: PERRL/EOMI, eyes nml inspection Ears, Nose, Throat Exam: normal ENT inspection, TMs normal, pharynx normal, moist mucous membranes Neck Exam: normal inspection, non-tender, supple, full range of motion Respiratory Exam: normal breath sounds, lungs clear, No respiratory distress Cardiovascular Exam: regular rate/rhythm, normal heart sounds, normal peripheral pulses Gastrointestinal/Abdomen Exam: soft, normal bowel sounds, tenderness (tender nodules in incision no erythema or drainage), No mass Back Exam: normal inspection, normal range of motion, No CVA tenderness, No vertebral tenderness Extremity Exam: normal inspection, normal range of motion, pelvis stable Neurologic Exam: alert, oriented x 3, cooperative, normal mood/affect, nml cerebellar function, nml station & gait, sensation nml, No motor deficits Skin Exam: normal color, warm, dry, No rash Lymphatic Exam: No adenopathy SpO2: 96 - Course Nursing assessment & vital signs reviewed: Yes EKG Interpreted by Me: Sinus Tach, NORMAL AXIS, NORMAL INTERVALS, NORMAL QRS, Non-specific ST Changes - CT Exams Abdomen/Pelvis CT Interpretation: Tele-radiologist Report, Normal Appendix, No appendicitis, Other (umb hernia rith hydroneph. minimal incisional fluid) Ordered Tests: Active Orders 24 hr Category Date Time Status EKG-ER Only STAT Care 11/01/20 21:10 Active IV Insertion STAT Care 11/01/20 21:10 Active ABDOMEN AND PELVIS W/0 CONTRAS [CT] Stat Exams 11/01/20 21:14 Taken AMYLASE Stat Lab 11/01/20 21:25 Completed CBC W DIFF Stat Lab 11/01/20 21:25 Completed CMP Stat Lab 11/01/20 21:25 Completed CULTURE,URINE Stat Lab 11/01/20 21:11 Received LIPASE Stat Lab 11/01/20 21:25 Completed Lactic Acid Stat Lab 11/01/20 21:28 Completed UA W/RFX UR CULTURE Stat Lab 11/01/20 21:11 Completed Medication Summary Discontinued Medications Generic Name Dose Route Start Last Admin Trade Name Freq PRN Reason Stop Dose Admin Hydromorphone HCl 0.5 mg 11/01/20 21:10 11/01/20 22:03 Hydromorphone 1 Mg/Ml Injection IV 11/01/20 21:11 0.5 mg STAT ONE Administration Hydromorphone HCl Confirm 11/01/20 22:01 Hydromorphone 1 Mg/Ml Injection Administered 11/01/20 22:02 Dose 1 mg .ROUTE .STK-MED ONE Sodium Chloride 1,000 mls @ 999 mls/hr 11/01/20 21:10 11/01/20 22:04 Sodium Chloride 0.9% 1000 Ml IV 11/01/20 22:10 999 mls/hr .Q1H1M STA Administration Sodium Chloride Confirm 11/01/20 22:01 Sodium Chloride 0.9% 1000 Ml Administered 11/01/20 22:02 Dose 1,000 mls @ ud .ROUTE .STK-MED ONE Levofloxacin/Dextrose 750 mg in 150 mls @ 100 mls/hr 11/01/20 23:14 11/01/20 23:33 Levofloxacin 750mg/150ml D5w IV 11/02/20 00:43 Not Given STAT STA Piperacillin Sod/Tazobactam 100 mls @ 200 mls/hr 11/01/20 23:16 11/01/20 23:24 Sod 4.5 gm/ Sodium Chloride IV 11/01/20 23:45 200 mls/hr STAT ONE Administration Sodium Chloride Confirm 11/01/20 23:23 Sodium Chloride 100ml Mini-Bag Plus Administered 11/01/20 23:24 Dose 100 mls @ ud IV .STK-MED ONE Ondansetron HCl 4 mg 11/01/20 21:10 11/01/20 22:03 Zofran 4 Mg/2 Ml Vial IV 11/01/20 21:11 4 mg STAT ONE Administration Ondansetron HCl Confirm 11/01/20 22:00 Zofran 4 Mg/2 Ml Vial Administered 11/01/20 22:01 Dose 4 mg .ROUTE .STK-MED ONE Piperacillin Sod/Tazobactam Sod Confirm 11/01/20 23:21 Zosyn Inj Administered 11/01/20 23:22 Dose 4.5 gm IV .STK-MED ONE Lab/Rad Data: Laboratory Result Diagrams 11/01/20 21:25 11/01/20 21:25 Laboratory Results 11/01/20 11/01/20 11/01/20 Range/Units 21:28 21:25 21:25 WBC 6.8 (4.0-10.5) K/mm3 RBC 4.02 L (4.1-5.4) M/mm3 Hgb 9.5 L (12.0-16.0) gm/dl Hct 32.1 L (35-47) % MCV 79.9 (78-100) fl MCH 23.6 L (26-32) pg MCHC 29.6 L (32-36) g/dl RDW 16.1 H (11.5-14.0) % Plt Count 316 (150-450) K/mm3 MPV 9.1 (7.5-11.0) fl Gran % 68.5 H (36.0-66.0) % Eos # (Auto) 0.13 (0-0.5) Absolute Lymphs (auto) 1.46 (1.0-4.6) Absolute Monos (auto) 0.54 (0.0-1.3) Lymphocytes % 21.3 L (24.0-44.0) % Monocytes % 7.9 (0.0-12.0) % Eosinophils % 1.9 (0.00-5.0) % Basophils % 0.4 (0.0-0.4) % Absolute Granulocytes 4.68 (1.4-6.9) Basophils # 0.03 (0-0.4) Sodium 135 L (137-145) mmol/L Potassium 4.2 (3.5-5.1) mmol/L Chloride 102 (98-107) mmol/L Carbon Dioxide 25 (22-30) mmol/L Anion Gap 12.8 (5-15) MEQ/L BUN 13 (7-17) mg/dL Creatinine 0.83 (0.52-1.04) mg/dL Estimated GFR > 60.0 ML/MIN Glucose 101 (74-106) mg/dL Lactic Acid 0.4 (0.4-2.0) Calcium 9.2 (8.4-10.2) mg/dL Total Bilirubin 0.40 (0.2-1.3) mg/dL AST 23 (14-36) U/L ALT 16 (0-35) U/L Alkaline Phosphatase 79 (38-126) U/L Serum Total Protein 7.9 (6.3-8.2) g/dL Albumin 4.0 (3.5-5.0) g/dL Amylase 92 (30-110) U/L Lipase 88 (23-300) U/L Urine Color (YELLOW) Urine Appearance (CLEAR) Urine pH (5-6) Ur Specific [place] (1.005-1.025) Urine Protein (Negative) Urine Ketones (NEGATIVE) Urine Blood (0-5) Chandler/ul Urine Nitrite (NEGATIVE) Urine Bilirubin (NEGATIVE) Urine Urobilinogen (0-1) mg/dL Ur Leukocyte Esterase (NEGATIVE) Urine WBC (Auto) (0-5) /HPF Urine RBC (Auto) (0-2) /HPF U Epithel Cells (Auto) (FEW) /HPF Urine Bacteria (Auto) (NEGATIVE) /HPF Amorphous Crystals (NEGATIVE) /HPF Urine Culture Reflexed (NO) Urine Glucose (NEGATIVE) mg/dL 11/01/20 Range/Units 21:11 WBC (4.0-10.5) K/mm3 RBC (4.1-5.4) M/mm3 Hgb (12.0-16.0) gm/dl Hct (35-47) % MCV (78-100) fl MCH (26-32) pg MCHC (32-36) g/dl RDW (11.5-14.0) % Plt Count (150-450) K/mm3 MPV (7.5-11.0) fl Gran % (36.0-66.0) % Eos # (Auto) (0-0.5) Absolute Lymphs (auto) (1.0-4.6) Absolute Monos (auto) (0.0-1.3) Lymphocytes % (24.0-44.0) % Monocytes % (0.0-12.0) % Eosinophils % (0.00-5.0) % Basophils % (0.0-0.4) % Absolute Granulocytes (1.4-6.9) Basophils # (0-0.4) Sodium (137-145) mmol/L Potassium (3.5-5.1) mmol/L Chloride (98-107) mmol/L Carbon Dioxide (22-30) mmol/L Anion Gap (5-15) MEQ/L BUN (7-17) mg/dL Creatinine (0.52-1.04) mg/dL Estimated GFR ML/MIN Glucose (74-106) mg/dL Lactic Acid (0.4-2.0) Calcium (8.4-10.2) mg/dL Total Bilirubin (0.2-1.3) mg/dL AST (14-36) U/L ALT (0-35) U/L Alkaline Phosphatase (38-126) U/L Serum Total Protein (6.3-8.2) g/dL Albumin (3.5-5.0) g/dL Amylase (30-110) U/L Lipase (23-300) U/L Urine Color YELLOW (YELLOW) Urine Appearance CLEAR (CLEAR) Urine pH 8.0 (5-6) Ur Specific [place] 1.011 (1.005-1.025) Urine Protein NEGATIVE (Negative) Urine Ketones NEGATIVE (NEGATIVE) Urine Blood LARGE (0-5) Chandler/ul Urine Nitrite NEGATIVE (NEGATIVE) Urine Bilirubin NEGATIVE (NEGATIVE) Urine Urobilinogen NEGATIVE (0-1) mg/dL Ur Leukocyte Esterase MODERATE (NEGATIVE) Urine WBC (Auto) 16-25 (0-5) /HPF Urine RBC (Auto) 16-25 (0-2) /HPF U Epithel Cells (Auto) NONE (FEW) /HPF Urine Bacteria (Auto) FEW (NEGATIVE) /HPF Amorphous Crystals FEW (NEGATIVE) /HPF Urine Culture Reflexed YES (NO) Urine Glucose NEGATIVE (NEGATIVE) mg/dL - Progress Progress: improved, re-examined Progress Note: 11/02/20 00:11 pt ramy pcns in past OK. HR decreased to 60s during Tx. 11/02/20 00:29 pt reports that she already had Covid about 6 weeks ago and recovered. She is still advised however that she may wish to be tested anyway due to fever. 11/02/20 00:31 pain has now subsided. 11/02/20 00:32 Pt is advised that we have not determined the cause of the pain or fever although kidney infection /stone are possibilities and require workup , COvid even though she had it already could be considered, and the incision may be just a variant of healing or an undetected infection, and there could also be other undetected pathology which makes the f/u more important. Counseled pt/family regarding: lab results, diagnosis, need for follow-up, rad results - Departure Departure Disposition: Home Clinical Impression: UTI (urinary tract infection), mild hydronephrosis, incision nodule / infection Condition: Good Critical Care Time: No Referrals: KING OVIEDO MD [Primary Care Provider] - Instructions: Urinary Tract Infection, Adult (DC) Additional Instructions: There may be a wound infection or collection , even though the CT scan does not show an abscess. THerefore it is important to follow-up with your Dr Madan to continue the workup to find a cause for the fever and pain . There are some signs of urinary infection and possible kidney stone with effects on the kidney which should be also followed up with your DrMadan tomorrow if possible. Return meantime if not improving , vomiting or other concerns. Prescriptions: Amoxicillin/Potassium Clav [Augmentin 875-125 Tablet] 875 mg PO BID #20 tablet
[2020-11-01] MEDS ORDERED: LEVOFLOXACIN 750MG/150ML D5W 750 MG/150 ML BAG IV STA (23:14)
[2020-11-01] MEDS ORDERED: Zosyn INJ 4.5 GM in Sodium Chloride 100ML MINI-BAG PLUS 100 ML IV ONE (23:16)
[2020-11-01] MEDS ORDERED: Zosyn INJ IV ONE (23:21)
[2020-11-01] MEDS ORDERED: Sodium Chloride 100ML MINI-BAG PLUS 100 ML IV ONE (23:23)
[2020-11-02 00:53] VITALS: PULSE 73
[2020-11-02 01:06] VITALS: BP 96/57; O2SAT 98
--- NOTE | 2020-11-02 09:27 | XRAY ---
Indication: Right lower quadrant abdominal incisional knot. 17 weeks' section. Fever. Multiple contiguous axial images obtained through the abdomen and pelvis without contrast as ordered. Comparison: None. Lung bases are clear. Heart is not enlarged. Anterior pelvis demonstrates abdominal wall soft tissue changes consistent with recent section. Right incisional scar demonstrates very minimal fluid collection presumed hematoma/seroma. No suspicious fluid/air collection to suggest abscess. Stomach is distended with food/fluid. Noncontrasted stomach and bowel loops appear nonobstructed. Normal appendix. Mild diffuse scattered fecal debris predominantly in the ascending colon. Tiny cul-de-sac fluid but no walled off fluid collection or free air. Prominent uterus presumed from recent . Right kidney is mildly hydronephrotic without calculus. Remaining liver, gallbladder, pancreas, spleen, adrenal glands, kidneys, ureters, bladder, uterus, and aorta appear unremarkable for noncontrast exam. Osseous structures intact. Impression: 1. Prominent uterus with abdominal postsurgical changes consistent with recent and section. Small incisional hematoma/seroma. 2. Mild hydronephrotic right kidney which may also be related to . Passage of calculus not completely excluded. 3. Remaining CT abdomen/pelvis without contrast exam is negative.. Comment: Preliminary interpretation was made by [id number]. No critical discrepancy.
== END 2020-11-02 01:10 | disposition home or self-care (01) ==
LOC: ED 20:57
DX: N39.0 Urinary tract infection, site not specified (principal); N13.30 Unspecified hydronephrosis; O90.0 Disruption of cesarean delivery wound; O86.09 Infection of obstetric surgical wound, other surgical site
CPT/HCPCS: 36000; 36415; 74176; 80053; 81001; 82150; 83605; 83690; 85025; 87086; 93005; 96365; 96374; 96375; 99284; J1170; J2405; J2543

== ENCOUNTER 2021-11-23 18:07 | Emergency (ER) | payer OTHER ==
--- NOTE | 2021-11-23 18:14 | ERPHSYRPT ---
- History of Present Illness Time Seen by Provider: 11/23/21 18:14 Historian: patient Exam Limitations: no limitations Physician History: This is a 26-year-old white female patient of Dr. Oviedo who is 15 weeks and began having nausea and vomiting today. She did take Zofran earlier this morning. She is been nauseated dry heaving and vomiting throughout the day today and she feels as though she has a headache from this. She has no significant bowel pain. She has had no vaginal bleeding. She has no nausea vomiting or diarrhea. Timing/Duration: today Activities at Onset: none Abdominal Pain Onset Location: other (No significant abdominal pain) Severity of Pain-Max: none Severity of Pain-Current: none Modifying Factors: Improves With: nothing Associated Symptoms: loss of appetite, nausea, vomiting, weakness Previous symptoms: no prior history Allergies/Adverse Reactions: Cephalosporins Allergy (Verified 11/01/20 21:14) Home Medications: Vitamins/Fe Sulf/FA [ Tablet] 1 tab PO DAILY 11/22/16 [History] Calcium Carbonate [Tums] 200 mg PO DAILY PRN PRN 09/04/20 [History] Hx Tetanus, Diphtheria Vaccination/Date Given: No Hx Influenza Vaccination/Date Given: Yes Hx Pneumococcal Vaccination/Date Given: No Travel Risk - International Travel Have you traveled outside of the country in past 3 weeks: No - Coronavirus Screening Are you exhibiting any of the following symptoms?: No Close contact with a COVID-19 positive Pt in past 14-21 Days: No - Review of Systems Constitutional: Weakness Eyes: No Symptoms Ears, Nose, & Throat: No Symptoms Respiratory: No Symptoms Cardiac: No Symptoms Abdominal/Gastrointestinal: Nausea, Vomiting, No Abdominal Pain, No Diarrhea, No Constipation Genitourinary Symptoms: No Symptoms Musculoskeletal: No Symptoms Skin: No Symptoms Neurological: No Symptoms Psychological: No Symptoms Endocrine: No Symptoms Hematologic/Lymphatic: No Symptoms Immunological/Allergic: No Symptoms All Other Systems: Reviewed and Negative - Past Medical History Pertinent Past Medical History: No Neurological History: No Pertinent History ENT History: No Pertinent History Cardiac History: No Pertinent History Respiratory History: No Pertinent History Endocrine Medical History: No Pertinent History Musculoskeletal History: No Pertinent History GI Medical History: No Pertinent History History: No Pertinent History Psycho-Social History: No Pertinent History Female Reproductive Disorders: Other Other Medical History: D&C 01/24/16 - Past Surgical History Past Surgical History: Yes Neuro Surgical History: No Pertinent History Cardiac: No Pertinent History Respiratory: No Pertinent History Gastrointestinal: No Pertinent History Genitourinary: No Pertinent History Musculoskeletal: No Pertinent History Female Surgical History: No Pertinent History, Section Other Surgical History: tubes in ears as a child. D&C 01/24/16 - Social History Smoking Status: Never smoker Exposure to second hand smoke: No Alcohol Use: None Drug Use: none Patient Lives Alone: No Significant Family History: no pertinent family hx - Nursing Vital Signs Nursing Vital Signs: Initial Vital Signs Temperature 97.4 F 11/23/21 18:15 Pulse Rate 94 H 11/23/21 18:15 Respiratory Rate 16 11/23/21 18:15 Blood Pressure 121/59 11/23/21 18:15 O2 Sat by Pulse Oximetry 98 11/23/21 18:15 Pain Scale Pain Intensity 3 - Physical Exam General Appearance: no apparent distress, alert, anxiety Eye Exam: PERRL/EOMI, eyes nml inspection Ears, Nose, Throat Exam: normal ENT inspection, moist mucous membranes Neck Exam: normal inspection, non-tender, supple, full range of motion Respiratory Exam: normal breath sounds, lungs clear, airway intact, No chest tenderness, No respiratory distress Cardiovascular Exam: regular rate/rhythm, normal heart sounds, normal peripheral pulses Gastrointestinal/Abdomen Exam: soft, normal bowel sounds, No tenderness Pelvic Exam: not done Rectal Exam: not done Back Exam: normal inspection, normal range of motion, No CVA tenderness, No vertebral tenderness Extremity Exam: normal inspection, normal range of motion, pelvis stable Neurologic Exam: alert, oriented x 3, cooperative, flight surveyor II-XII nml as tested, normal mood/affect, nml cerebellar function, nml station & gait, sensation nml Skin Exam: normal color, warm, dry Lymphatic Exam: No adenopathy SpO2 Interpretation: normal O2 Delivery: Room Air - Course Nursing assessment & vital signs reviewed: Yes Ordered Tests: Active Orders 24 hr Category Date Time Status IV Insertion STAT Care 11/23/21 18:29 Active CBC W DIFF Stat Lab 11/23/21 18:58 Completed CMP Stat Lab 11/23/21 18:58 Completed COVID AG-BINAX NOW RAPID TEST Stat Lab 11/23/21 19:35 Completed INFLUENZA A+B ANA Stat Lab 11/23/21 19:35 Completed LIPASE Stat Lab 11/23/21 18:58 Completed Lactic Acid Stat Lab 11/23/21 18:57 Completed Jerauld Screen Stat Lab 11/23/21 19:00 Completed UA W/RFX UR CULTURE Stat Lab 11/23/21 18:32 Completed Medication Summary Discontinued Medications Generic Name Dose Route Start Last Admin Trade Name Phillip PRN Reason Stop Dose Admin Acetaminophen 650 mg 11/23/21 18:29 11/23/21 18:37 Acetaminophen 325 Mg Tablet PO 11/23/21 18:30 650 mg STAT ONE Administration Acetaminophen Confirm 11/23/21 18:34 Acetaminophen 325 Mg Tablet Administered 11/23/21 18:35 Dose 650 mg .ROUTE .STK-MED ONE Sodium Chloride 1,000 mls @ 999 mls/hr 11/23/21 18:29 11/23/21 20:01 Sodium Chloride 0.9% 1000 Ml IV 11/23/21 19:29 Infused .Q1H1M STA Infusion Sodium Chloride Confirm 11/23/21 18:34 Sodium Chloride 0.9% 1000 Ml Administered 11/23/21 18:35 Dose 1,000 mls @ ud .ROUTE .STK-MED ONE Nitrofurantoin Macrocrystals 100 mg 11/23/21 19:56 11/23/21 20:02 Nitrofurantoin Macro 100 Mg Capsule PO 11/23/21 19:57 100 mg STAT ONE Administration Nitrofurantoin Macrocrystals Confirm 11/23/21 20:01 Nitrofurantoin Macro 100 Mg Capsule Administered 11/23/21 20:02 Dose 100 mg .ROUTE .STK-MED ONE Ondansetron HCl 4 mg 11/23/21 18:29 11/23/21 18:53 Ondansetron Hcl 4 Mg/2 Ml Vial IV 11/23/21 18:30 4 mg STAT ONE Administration Ondansetron HCl Confirm 11/23/21 18:34 Ondansetron Hcl 4 Mg/2 Ml Vial Administered 11/23/21 18:35 Dose 4 mg .ROUTE .STK-MED ONE Lab/Rad Data: Laboratory Result Diagrams 11/23/21 18:58 11/23/21 18:58 Laboratory Results 11/23/21 11/23/21 11/23/21 Range/Units 19:35 19:35 19:35 WBC (4.0-10.5) K/mm3 RBC (4.1-5.4) M/mm3 Hgb (12.0-16.0) gm/dl Hct (35-47) % MCV (78-100) fl MCH (26-32) pg MCHC (32-36) g/dl RDW (11.5-14.0) % Plt Count (150-450) K/mm3 MPV (7.5-11.0) fl Gran % (36.0-66.0) % Eos # (Auto) (0-0.5) Absolute Lymphs (auto) (1.0-4.6) Absolute Monos (auto) (0.0-1.3) Lymphocytes % (24.0-44.0) % Monocytes % (0.0-12.0) % Eosinophils % (0.00-5.0) % Basophils % (0.0-0.4) % Absolute Granulocytes (1.4-6.9) Basophils # (0-0.4) Sodium (137-145) mmol/L Potassium (3.5-5.1) mmol/L Chloride (98-107) mmol/L Carbon Dioxide (22-30) mmol/L Anion Gap (5-15) MEQ/L BUN (7-17) mg/dL Creatinine (0.52-1.04) mg/dL Estimated GFR ML/MIN Glucose (74-106) mg/dL Lactic Acid (0.4-2.0) Calcium (8.4-10.2) mg/dL Total Bilirubin (0.2-1.3) mg/dL AST (14-36) U/L ALT (0-35) U/L Alkaline Phosphatase (38-126) U/L Serum Total Protein (6.3-8.2) g/dL Albumin (3.5-5.0) g/dL Lipase (23-300) U/L Urine Color (YELLOW) Urine Appearance (CLEAR) Urine pH (5-6) Ur Specific Ambrose (1.005-1.025) Urine Protein (Negative) Urine Ketones (NEGATIVE) Urine Blood (0-5) Chandler/ul Urine Nitrite (NEGATIVE) Urine Bilirubin (NEGATIVE) Urine Urobilinogen (0-1) mg/dL Ur Leukocyte Esterase (NEGATIVE) Urine WBC (Auto) (0-5) /HPF Urine RBC (Auto) (0-2) /HPF U Epithel Cells (Auto) (FEW) /HPF Urine Bacteria (Auto) (NEGATIVE) /HPF Urine Mucus (Auto) (NEGATIVE) /HPF Urine Culture Reflexed (NO) Urine Glucose (NEGATIVE) mg/dL Monoscreen (Negative) Influenza Type A Ag NEGATIVE (NEGATIVE) Influenza Type B Ag NEGATIVE (NEGATIVE) SARS-CoV-2 Ag (Rapid) NEGATIVE (NEGATIVE) Group A Strep Antibody NOT DETECTED (NEGATIVE) 11/23/21 11/23/21 11/23/21 Range/Units 19:00 18:58 18:58 WBC 6.4 (4.0-10.5) K/mm3 RBC 3.98 L (4.1-5.4) M/mm3 Hgb 12.5 (12.0-16.0) gm/dl Hct 36.8 (35-47) % MCV 92.5 (78-100) fl MCH 31.4 (26-32) pg MCHC 34.0 (32-36) g/dl RDW 13.7 (11.5-14.0) % Plt Count 177 (150-450) K/mm3 MPV 9.7 (7.5-11.0) fl Gran % 70.1 H (36.0-66.0) % Eos # (Auto) 0.05 (0-0.5) Absolute Lymphs (auto) 1.37 (1.0-4.6) Absolute Monos (auto) 0.46 (0.0-1.3) Lymphocytes % 21.4 L (24.0-44.0) % Monocytes % 7.2 (0.0-12.0) % Eosinophils % 0.8 (0.00-5.0) % Basophils % 0.5 (0.0-0.4) % Absolute Granulocytes 4.48 (1.4-6.9) Basophils # 0.03 (0-0.4) Sodium 135 L (137-145) mmol/L Potassium 3.9 (3.5-5.1) mmol/L Chloride 107 (98-107) mmol/L Carbon Dioxide 18 L (22-30) mmol/L Anion Gap 13.7 (5-15) MEQ/L BUN 4 L (7-17) mg/dL Creatinine 0.46 L (0.52-1.04) mg/dL Estimated GFR > 60.0 ML/MIN Glucose 77 (74-106) mg/dL Lactic Acid (0.4-2.0) Calcium 9.3 (8.4-10.2) mg/dL Total Bilirubin 1.20 (0.2-1.3) mg/dL AST 20 (14-36) U/L ALT 12 (0-35) U/L Alkaline Phosphatase 59 (38-126) U/L Serum Total Protein 7.3 (6.3-8.2) g/dL Albumin 4.0 (3.5-5.0) g/dL Lipase 34 (23-300) U/L Urine Color (YELLOW) Urine Appearance (CLEAR) Urine pH (5-6) Ur Specific Ambrose (1.005-1.025) Urine Protein (Negative) Urine Ketones (NEGATIVE) Urine Blood (0-5) Chandler/ul Urine Nitrite (NEGATIVE) Urine Bilirubin (NEGATIVE) Urine Urobilinogen (0-1) mg/dL Ur Leukocyte Esterase (NEGATIVE) Urine WBC (Auto) (0-5) /HPF Urine RBC (Auto) (0-2) /HPF U Epithel Cells (Auto) (FEW) /HPF Urine Bacteria (Auto) (NEGATIVE) /HPF Urine Mucus (Auto) (NEGATIVE) /HPF Urine Culture Reflexed (NO) Urine Glucose (NEGATIVE) mg/dL Monoscreen NEGATIVE (Negative) Influenza Type A Ag (NEGATIVE) Influenza Type B Ag (NEGATIVE) SARS-CoV-2 Ag (Rapid) (NEGATIVE) Group A Strep Antibody (NEGATIVE) 11/23/21 11/23/21 Range/Units 18:57 18:32 WBC (4.0-10.5) K/mm3 RBC (4.1-5.4) M/mm3 Hgb (12.0-16.0) gm/dl Hct (35-47) % MCV (78-100) fl MCH (26-32) pg MCHC (32-36) g/dl RDW (11.5-14.0) % Plt Count (150-450) K/mm3 MPV (7.5-11.0) fl Gran % (36.0-66.0) % Eos # (Auto) (0-0.5) Absolute Lymphs (auto) (1.0-4.6) Absolute Monos (auto) (0.0-1.3) Lymphocytes % (24.0-44.0) % Monocytes % (0.0-12.0) % Eosinophils % (0.00-5.0) % Basophils % (0.0-0.4) % Absolute Granulocytes (1.4-6.9) Basophils # (0-0.4) Sodium (137-145) mmol/L Potassium (3.5-5.1) mmol/L Chloride (98-107) mmol/L Carbon Dioxide (22-30) mmol/L Anion Gap (5-15) MEQ/L BUN (7-17) mg/dL Creatinine (0.52-1.04) mg/dL Estimated GFR ML/MIN Glucose (74-106) mg/dL Lactic Acid 0.9 (0.4-2.0) Calcium (8.4-10.2) mg/dL Total Bilirubin (0.2-1.3) mg/dL AST (14-36) U/L ALT (0-35) U/L Alkaline Phosphatase (38-126) U/L Serum Total Protein (6.3-8.2) g/dL Albumin (3.5-5.0) g/dL Lipase (23-300) U/L Urine Color YELLOW (YELLOW) Urine Appearance SLIGHTLY CLOUDY (CLEAR) Urine pH 7.0 (5-6) Ur Specific Ambrose 1.009 (1.005-1.025) Urine Protein NEGATIVE (Negative) Urine Ketones TRACE (NEGATIVE) Urine Blood NEGATIVE (0-5) Chandler/ul Urine Nitrite NEGATIVE (NEGATIVE) Urine Bilirubin NEGATIVE (NEGATIVE) Urine Urobilinogen NEGATIVE (0-1) mg/dL Ur Leukocyte Esterase LARGE (NEGATIVE) Urine WBC (Auto) 6-10 (0-5) /HPF Urine RBC (Auto) NONE (0-2) /HPF U Epithel Cells (Auto) RARE (FEW) /HPF Urine Bacteria (Auto) NONE (NEGATIVE) /HPF Urine Mucus (Auto) SLIGHT (NEGATIVE) /HPF Urine Culture Reflexed NO (NO) Urine Glucose NEGATIVE (NEGATIVE) mg/dL Monoscreen (Negative) Influenza Type A Ag (NEGATIVE) Influenza Type B Ag (NEGATIVE) SARS-CoV-2 Ag (Rapid) (NEGATIVE) Group A Strep Antibody (NEGATIVE) - Departure Departure Disposition: Home Clinical Impression: UTI (urinary tract infection) during Condition: Stable Critical Care Time: No Referrals: KING OVIEDO MD [Primary Care Provider] - Follow up/PCP as directed Additional Instructions: Drink plenty of fluids. Take your medication as prescribed. Follow-up with your primary care physician for further management. Prescriptions: Nitrofurantoin Macro 100 mg [Macrobid 100MG Capsule] 100 mg PO BID #10 cap
[2021-11-23] MEDS ORDERED: TYLENOL 325 MG PO ONE (18:29)
[2021-11-23] MEDS ORDERED: Sodium Chloride 0.9% 1000 ML 1,000 ML IV STA (18:29)
[2021-11-23] MEDS ORDERED: Zofran 4 MG/2 ML VIAL IV ONE (18:29)
[2021-11-23] MEDS ORDERED: Sodium Chloride 0.9% 1000 ML 1,000 ML ONE (18:34)
[2021-11-23] MEDS ORDERED: TYLENOL 325 MG ONE (18:34)
[2021-11-23] MEDS ORDERED: Zofran 4 MG/2 ML VIAL ONE (18:34)
[2021-11-23 18:58] LABS: Appearance SLIGHTLY CLOUDY (CLEAR); Bilirubin NEGATIVE (NEGATIVE); Blood NEGATIVE Ery/ul (0-5); Epithelial Cells RARE /HPF (FEW); Glucose NEGATIVE (NEGATIVE); Ketones TRACE (NEGATIVE); Leukocyte Esterase LARGE (NEGATIVE); Mucus SLIGHT /HPF (NEGATIVE); Nitrite NEGATIVE (NEGATIVE); Protein,Urine Dip NEGATIVE (Negative); Specific Gravity 1.009 (1.005-1.025); Urobilinogen NEGATIVE mg/dL (0-1)
[2021-11-23 19:07] LABS: Absolute Neutrophil Ct (ANC) 4.48 (1.4-6.9); Basophil (Absolute #) 0.03 (0-0.4); Eosinophil % 0.8 % (0.00-5.0); Eosinophil (Absolute #) 0.05 (0-0.5); Hematocrit 36.8 % (35-47); Hemoglobin 12.5 gm/dl (12.0-16.0); Lymphocyte (Absolute #) 1.37 (1.0-4.6); Lymphocytes % 21.4 % (24.0-44.0); Mean Cell Volume 92.5 fl (78-100); Mean Corpuscular Hemoglobin 31.4 pg (26-32); Mean Platelet Volume 9.7 fl (7.5-11.0); Monocyte (Absolute #) 0.46 (0.0-1.3); Monocytes % 7.2 % (0.0-12.0); Neutrophil % 70.1 % (36.0-66.0); Platelet Count 177 K/mm3 (150-450); Red Blood Count 3.98 M/mm3 (4.1-5.4); Red Cell Distribution Width 13.7 % (11.5-14.0); White Blood Count 6.4 K/mm3 (4.0-10.5)
[2021-11-23 19:14] LABS: ALKALINE PHOSPHATASE 59 U/L (38-126); ANION GAP 13.7 MEQ/L (5-15); BLOOD UREA NITROGEN 4 mg/dL (7-17); CHLORIDE 107 mmol/L (98-107); Calcium 9.3 mg/dL (8.4-10.2); Carbon Dioxide 18 mmol/L (22-30); Creatinine 1 0.46 mg/dL (0.52-1.04); EST GLOMERULAR FILTRATION RATE > 60.0 ML/MIN; Glucose 77 mg/dL (74-106); LIPASE 34 U/L (23-300); Potassium 3.9 mmol/L (3.5-5.1); SGOT/AST 20 U/L (14-36); SGPT/ALT 12 U/L (0-35); SODIUM 135 mmol/L (137-145); Total Protein 7.3 g/dL (6.3-8.2)
[2021-11-23 19:24] VITALS: BP 106/66; PULSE 72; O2SAT 99
[2021-11-23] MEDS ORDERED: Macrobid 100MG Capsule PO ONE (19:56)
[2021-11-23] MEDS ORDERED: Macrobid 100MG Capsule ONE (20:01)
[2021-11-23 20:02] LABS: INFLUENZA A NEGATIVE (NEGATIVE); INFLUENZA B NEGATIVE (NEGATIVE)
[2021-11-23 20:03] LABS: COVID AG -BINAX NOW RAPID TEST NEGATIVE (NEGATIVE)
== END 2021-11-23 20:45 | disposition home or self-care (01) ==
LOC: ED 18:07
DX: O23.42 Unspecified infection of urinary tract in pregnancy, second trimester (principal); N39.0 Urinary tract infection, site not specified; Z3A.15 15 weeks gestation of pregnancy; R11.2 Nausea with vomiting, unspecified; R51.9 Headache, unspecified
CPT/HCPCS: 36000; 36415; 80053; 81001; 83605; 83690; 85025; 86308; 87400; 87651; 96360; 96374; 99000; 99284; J2405; A9270-GY

== ENCOUNTER 2022-02-16 17:57 | Observation (INO) | payer OTHER ==
[2022-02-16 19:21] LABS: Bacteria RARE /HPF (NEGATIVE); Epithelial Cells FEW /HPF (FEW); Mucus SLIGHT /HPF (NEGATIVE); RBC 0-2 /HPF (0-2)
[2022-02-16 19:29] LABS: Amphetamine,Urine NEGATIVE (NEGATIVE); Barbiturate,Urine NEGATIVE (NEGATIVE); Benzodiazepine,Urine NEGATIVE (NEGATIVE); Cocaine,Urine NEGATIVE (NEGATIVE); Methadone,Urine NEGATIVE (NEGATIVE); Opiate,Urine NEGATIVE (NEGATIVE); PCP,Urine NEGATIVE (NEGATIVE); THC,Urine NEGATIVE (NEGATIVE)
[2022-02-16 19:37] LABS: Appearance SLIGHTLY CLOUDY (CLEAR); Bilirubin NEGATIVE (NEGATIVE); Glucose NEGATIVE (NEGATIVE); Ketones >=160 (NEGATIVE); Nitrite NEGATIVE (NEGATIVE); Protein,Urine Dip NEGATIVE (Negative); RBC NEGATIVE Ery/ul (0-5); Specific Gravity 1.025 (1.005-1.025); Urine Cultured Indicated? YES; Urobilinogen 0.2 mg/dL (0-1)
[2022-02-16 19:38] LABS: Dipstick done @ ? MAIN LAB
[2022-02-16] MEDS ORDERED: Lactated Ringers 1,000 ML IV ONE (20:18)
[2022-02-16] MEDS ORDERED: Macrobid 100MG Capsule PO ONE (21:00)
[2022-02-16] MEDS ORDERED: Indocin 25 MG PO ONE (21:51)
[2022-02-16] MEDS ORDERED: Zofran 4 MG/2 ML VIAL IV PRN (21:56)
[2022-02-16] MEDS ORDERED: BRETHINE 1 MG/ML SQ ONE (22:00)
[2022-02-16] MEDS ORDERED: Invanz *** 1 G in Sodium Chloride 100ML MINI-BAG PLUS 100 ML IV SCH (22:00)
[2022-02-16] MEDS ORDERED: Lactated Ringers 1,000 ML IV SCH (23:30)
[2022-02-17] VITALS: O2SAT 100
[2022-02-17] MEDS ORDERED: Indocin 25 MG PO SCH (04:00)
[2022-02-17 05:51] VITALS: BP 112/68; PULSE 112
== END 2022-02-17 05:30 | disposition home or self-care (01) ==
LOC: OB 17:57
PROVIDERS: ADMIT Obstetrics & Gynecology; ATTEND Obstetrics & Gynecology
DX: Z34.83 Encounter for supervision of other normal pregnancy, third trimester (principal); Z3A.28 28 weeks gestation of pregnancy
CPT/HCPCS: 80307; 81015; 84112; 87086; G0378; J1335; J2405; A9270-GY

== ENCOUNTER 2022-02-18 11:03 | Emergency (ER) | payer OTHER ==
[2022-02-18] MEDS ORDERED: Sodium Chloride 0.9% 1000 ML 1,000 ML IV STA ×2 (11:32→13:32)
[2022-02-18] MEDS ORDERED: Pepcid 20 MG VIAL IV ONE ×2 (11:32→11:37)
[2022-02-18] MEDS ORDERED: TYLENOL EXTRA STRENGTH 500 MG PO STA (11:33)
[2022-02-18] MEDS ORDERED: GI COCKTAIL 45 ML (Maalox/Lidocaine) PO ONE (11:33)
[2022-02-18] MEDS ORDERED: MAALOX ES 30 ML UNIT DOSE ONE (11:38)
[2022-02-18] MEDS ORDERED: TYLENOL EXTRA STRENGTH 500 MG ONE (11:38)
[2022-02-18] MEDS ORDERED: XYLOCAINE VISCOUS 2% 15 ML CUP ONE (11:38)
[2022-02-18] MEDS ORDERED: Sodium Chloride 0.9% 1000 ML 1,000 ML ONE ×2 (11:38→13:42)
--- NOTE | 2022-02-18 11:43 | ERPHSYRPT ---
- History of Present Illness Time Seen by Provider: 02/18/22 11:09 Historian: patient Exam Limitations: no limitations Patient Subjective Stated Complaint: pt here for epigastric pain for 2 days now. was admitted on mon/ for labor and started on new meds, she states meds makes pain worse. she is 28 weeks , 6 para 4, Triage Nursing Assessment: pt alert, resp easy, face mask in place, skin w/d/p. epigstric area tendr to palpate, moves all ext well, no contractiosns, no vaginal bleeding, FHT 166 Physician History: 26 years old 6 para 4 at 28 weeks gestation presented in the ER with 2 d ays history of epigastric/substernal chest pain. Patient described this as a pressure with something sitting on her lower chest and epigastric area radiation to the back. Moderate to severe intensity, aggravated with deep breathing,, oral intake makes it feels as if it is stuck in the lower chest with nausea and vomiting. Patient was recently admitted for labor and currently on antibiotics for tooth infection along with indomethacin for labor. Patient reports taking Tums with no significant relief at all. Patient reports having history of GERD with pregnancies in the past and states "I know how the acid reflux pain is but this is totally different". She has decreased oral intake, feeling weak fatigued and tired. Denies any lower abdominal/pelvic pain, vaginal bleeding, contractions etc. Timing/Duration: day(s) (2), gradual onset, worse Activities at Onset: rest Quality: fullness, pressure Location: epigastric Chest Pain Radiation: back Severity of Pain-Max: moderate Severity of Pain-Current: moderate Modifying Factors: Worsens With: eating Associated Symptoms: nausea, vomiting, heartburn Prior Chest Pain/Cardiac Workup: no prior chest pain Nitro Today/Relief: no nitro taken today Aspirin Treatment Today: no aspirin today Allergies/Adverse Reactions: Cephalosporins Allergy (Verified 02/18/22 11:13) nitrofurantoin [From Macrobid] Adverse Reaction (Verified 02/18/22 11:13) Nausea and Vomiting Home Medications: Vitamins/Fe Sulf/FA [ Tablet] 1 tab PO DAILY 11/22/16 [History] Calcium Carbonate [Tums] 200 mg PO DAILY PRN PRN 09/04/20 [History] Amoxicillin 1 ea TID 02/18/22 [History] Hx Tetanus, Diphtheria Vaccination/Date Given: No Hx Influenza Vaccination/Date Given: No Hx Pneumococcal Vaccination/Date Given: No Immunizations Up to Date: Yes Travel Risk - International Travel Have you traveled outside of the country in past 3 weeks: No - Coronavirus Screening Are you exhibiting any of the following symptoms?: No - Vaccine Status Have you recieved a Covid-19 vaccination: No - Review of Systems Constitutional: No Symptoms Eyes: No Symptoms Ears, Nose, & Throat: No Symptoms Respiratory: No Symptoms Cardiac: Chest Pain Abdominal/Gastrointestinal: Nausea, Vomiting Genitourinary Symptoms: Musculoskeletal: No Symptoms Skin: No Symptoms Neurological: No Symptoms Psychological: No Symptoms Endocrine: No Symptoms Hematologic/Lymphatic: No Symptoms Immunological/Allergic: No Symptoms - Past Medical History Pertinent Past Medical History: No Neurological History: No Pertinent History ENT History: No Pertinent History Cardiac History: No Pertinent History Respiratory History: No Pertinent History Endocrine Medical History: No Pertinent History Musculoskeletal History: No Pertinent History GI Medical History: No Pertinent History History: No Pertinent History Psycho-Social History: No Pertinent History Female Reproductive Disorders: Other Other Medical History: D&C 01/24/16 - Past Surgical History Past Surgical History: Yes Neuro Surgical History: No Pertinent History Cardiac: No Pertinent History Respiratory: No Pertinent History Gastrointestinal: No Pertinent History Genitourinary: No Pertinent History Musculoskeletal: No Pertinent History Female Surgical History: No Pertinent History, Section Other Surgical History: tubes in ears as a child. D&C 01/24/16 - Social History Smoking Status: Never smoker Exposure to second hand smoke: No Alcohol Use: None Drug Use: none Patient Lives Alone: No Significant Family History: no pertinent family hx - Female History Hx Last Menstrual Period: jul 2021 Hx Now: Yes Expected Date of Delivery: 05/12/22 - Nursing Vital Signs Nursing Vital Signs: Initial Vital Signs Temperature 97.2 F 02/18/22 11:06 Pulse Rate 125 H 02/18/22 11:06 Respiratory Rate 20 02/18/22 11:06 Blood Pressure 124/78 02/18/22 11:06 O2 Sat by Pulse Oximetry 100 02/18/22 11:06 Pain Scale Pain Intensity 2 - Physical Exam General Appearance: no apparent distress, alert Eye Exam: PERRL/EOMI Ears, Nose, Throat Exam: normal ENT inspection, TMs normal, pharynx normal, moist mucous membranes Neck Exam: normal inspection, non-tender, supple, full range of motion Respiratory Exam: normal breath sounds, lungs clear Cardiovascular Exam: normal heart sounds, tachycardia Gastrointestinal/Abdomen Exam: soft, normal bowel sounds, tenderness (Epigastric area) Back Exam: normal inspection, normal range of motion Extremity Exam: normal inspection, normal range of motion, pelvis stable Neurologic Exam: alert, oriented x 3, cooperative Skin Exam: normal color SpO2 Interpretation: normal SpO2: 100 O2 Delivery: Room Air Ordered Tests: Active Orders 24 hr Category Date Time Status Medical Record Administrator STAT Care 02/18/22 11:32 Active EKG-ER Only STAT Care 02/18/22 11:32 Active IV Insertion STAT Care 02/18/22 11:32 Active CHEST 1 VIEW (PORTABLE) Stat Exams 02/18/22 11:32 Completed CHEST WITH CONTRAST [CT] Stat Exams 02/18/22 13:26 Completed CBC W DIFF Stat Lab 02/18/22 11:30 Completed CK-Creatinine Phosphokinase Stat Lab 02/18/22 11:30 Completed CMP Stat Lab 02/18/22 11:30 Completed D-DIMER QUANTITATIVE Stat Lab 02/18/22 12:35 Completed LIPASE Stat Lab 02/18/22 11:30 Completed NT PRO BNP Stat Lab 02/18/22 11:30 Completed TROPONIN Q3H Lab 02/18/22 11:30 Completed TROPONIN Q3H Lab 02/18/22 15:04 Completed TROPONIN Q3H Lab 02/18/22 17:45 Ordered TROPONIN Q3H Lab 02/18/22 20:45 Ordered TROPONIN Q3H Lab 02/18/22 23:45 Ordered UA W/RFX CULTURE Stat Lab 02/18/22 12:48 Completed Medication Summary Discontinued Medications Generic Name Dose Route Start Last Admin Trade Name Phillip PRN Reason Stop Dose Admin Acetaminophen 1,000 mg 02/18/22 11:33 02/18/22 11:40 Acetaminophen 500 Mg Tablet PO 02/18/22 11:34 1,000 mg STAT STA Administration Acetaminophen Confirm 02/18/22 11:38 Acetaminophen 500 Mg Tablet Administered 02/18/22 11:39 Dose 1,000 mg .ROUTE .STK-MED ONE Al Hydrox/Mg Hydrox/Simethicone Confirm 02/18/22 11:38 Mag Hydrox/Al Hydrox/Simeth 30 Ml Udcup Administered 02/18/22 11:39 Dose 30 ml .ROUTE .STK-MED ONE Famotidine 20 mg 02/18/22 11:32 02/18/22 11:40 Famotidine 20 Mg/1 Vial IV 02/18/22 11:33 20 mg STAT ONE Administration Famotidine Confirm 02/18/22 11:37 Famotidine 20 Mg/1 Vial Administered 02/18/22 11:38 Dose 20 mg IV .STK-MED ONE Sodium Chloride 1,000 mls @ 999 mls/hr 02/18/22 11:32 02/18/22 12:51 Sodium Chloride 0.9% 1000 Ml IV 02/18/22 12:32 Infused .Q1H1M STA Infusion Sodium Chloride Confirm 02/18/22 11:38 Sodium Chloride 0.9% 1000 Ml Administered 02/18/22 11:39 Dose 1,000 mls @ ud .ROUTE .STK-MED ONE Sodium Chloride 1,000 mls @ 999 mls/hr 02/18/22 13:32 02/18/22 14:49 Sodium Chloride 0.9% 1000 Ml IV 02/18/22 14:32 Infused .Q1H1M STA Infusion Sodium Chloride Confirm 02/18/22 13:42 Sodium Chloride 0.9% 1000 Ml Administered 02/18/22 13:43 Dose 1,000 mls @ ud .ROUTE .STK-MED ONE Lidocaine HCl Confirm 02/18/22 11:38 Lidocaine Hcl 2% Viscous 15 Ml Udcup Administered 02/18/22 11:39 Dose 15 ml .ROUTE .STK-MED ONE Magnesium Hydroxide 45 ml 02/18/22 11:33 02/18/22 11:41 Mag Hydrx/Alum Hyd/Simeth/Lido 45 Ml Bottle PO 02/18/22 11:34 45 ml STAT ONE Administration Pantoprazole Sodium 40 mg 02/18/22 12:39 02/18/22 12:50 Pantoprazole 40 Mg Vial IV 02/18/22 12:40 40 mg STAT ONE Administration Pantoprazole Sodium Confirm 02/18/22 12:50 Pantoprazole 40 Mg Vial Administered 02/18/22 12:51 Dose 40 mg IV .STK-MED ONE Lab/Rad Data: Laboratory Result Diagrams 02/18/22 11:30 02/18/22 11:30 Laboratory Results 02/18/22 02/18/22 02/18/22 Range/Units 15:04 12:48 12:35 WBC (4.0-10.5) x10^3/uL RBC (4.1-5.4) x10^6/uL Hgb (12.0-16.0) g/dL Hct (35-47) % MCV (78-100) fL MCH (26-32) pg MCHC (32-36) g/dL RDW (11.5-14.0) % Plt Count (150-450) x10^3/uL MPV (7.5-11.0) fL Gran % (36.0-66.0) % Immature Gran % (Auto) (0.00-0.4) % Nucleat RBC Rel Count (0.00-0.1) % Eos # (Auto) (0-0.5) x10^3/uL Immature Gran # (Auto) (0.00-0.03) x10^3u/L Absolute Lymphs (auto) (1.0-4.6) x10^3/uL Absolute Monos (auto) (0.0-1.3) x10^3/uL Absolute Nucleated RBC (0.00-0.01) x10^3u/L Lymphocytes % (24.0-44.0) % Monocytes % (0.0-12.0) % Eosinophils % (0.00-5.0) % Basophils % (0.0-0.4) % Absolute Granulocytes (1.4-6.9) x10^3/uL Basophils # (0-0.4) x10^3/uL D-Dimer 3.09 H* (0.0-0.50) ng/mL Sodium (137-145) mmol/L Potassium (3.5-5.1) mmol/L Chloride (98-107) mmol/L Carbon Dioxide (22-30) mmol/L Anion Gap (5-15) MEQ/L BUN (7-17) mg/dL Creatinine (0.52-1.04) mg/dL Estimated GFR ML/MIN Glucose (74-106) mg/dL Calcium (8.4-10.2) mg/dL Total Bilirubin (0.2-1.3) mg/dL AST (14-36) U/L ALT (0-35) U/L Alkaline Phosphatase (38-126) U/L Creatine Kinase (30-135) U/L Troponin I < 0.012 (0.000-0.034) ng/mL NT-Pro-B Natriuret Pep (0-450) pg/mL Serum Total Protein (6.3-8.2) g/dL Albumin (3.5-5.0) g/dL Lipase (23-300) U/L Urinalys Dipstick Clnc MAIN LAB Urine Color YELLOW (YELLOW) Urine Appearance CLEAR (CLEAR) Urine pH 5.5 (5-6) Ur Specific [place] >=1.030 (1.005-1.025) POC Urine Protein Conf NEGATIVE (Negative) Urine Ketones >=160 (NEGATIVE) Urine Nitrite NEGATIVE (NEGATIVE) Urine Bilirubin SMALL (NEGATIVE) Urine Urobilinogen 0.2 (0-1) mg/dL Urine Leukocytes NEGATIVE (NEGATIVE) Urine WBC (Auto) 0-2 (0-5) /HPF Urine RBC (Auto) NONE (0-2) /HPF U Epithel Cells (Auto) RARE (FEW) /HPF Urine Bacteria (Auto) NONE (NEGATIVE) /HPF Urine RBC NEGATIVE (0-5) Chandler/ul Urine Mucus (Auto) SLIGHT (NEGATIVE) /HPF Ur Culture Indicated? NO Urine Glucose NEGATIVE (NEGATIVE) mg/dL 02/18/22 02/18/22 02/18/22 Range/Units 11:30 11:30 11:30 WBC 6.5 (4.0-10.5) x10^3/uL RBC 3.73 L (4.1-5.4) x10^6/uL Hgb 10.9 L (12.0-16.0) g/dL Hct 33.3 L (35-47) % MCV 89.3 (78-100) fL MCH 29.2 (26-32) pg MCHC 32.7 (32-36) g/dL RDW 13.6 (11.5-14.0) % Plt Count 153 (150-450) x10^3/uL MPV 10.3 (7.5-11.0) fL Gran % 74.5 H (36.0-66.0) % Immature Gran % (Auto) 0.6 H (0.00-0.4) % Nucleat RBC Rel Count 0.0 (0.00-0.1) % Eos # (Auto) 0.01 (0-0.5) x10^3/uL Immature Gran # (Auto) 0.04 H (0.00-0.03) x10^3u/L Absolute Lymphs (auto) 1.12 (1.0-4.6) x10^3/uL Absolute Monos (auto) 0.45 (0.0-1.3) x10^3/uL Absolute Nucleated RBC 0.00 (0.00-0.01) x10^3u/L Lymphocytes % 17.3 L (24.0-44.0) % Monocytes % 6.9 (0.0-12.0) % Eosinophils % 0.2 (0.00-5.0) % Basophils % 0.5 (0.0-0.4) % Absolute Granulocytes 4.84 (1.4-6.9) x10^3/uL Basophils # 0.03 (0-0.4) x10^3/uL D-Dimer (0.0-0.50) ng/mL Sodium 133 L (137-145) mmol/L Potassium 4.1 (3.5-5.1) mmol/L Chloride 104 (98-107) mmol/L Carbon Dioxide 18 L (22-30) mmol/L Anion Gap 14.8 (5-15) MEQ/L BUN 5 L (7-17) mg/dL Creatinine 0.69 (0.52-1.04) mg/dL Estimated GFR > 60.0 ML/MIN Glucose 77 (74-106) mg/dL Calcium 8.8 (8.4-10.2) mg/dL Total Bilirubin 0.90 (0.2-1.3) mg/dL AST 21 (14-36) U/L ALT 10 (0-35) U/L Alkaline Phosphatase 94 (38-126) U/L Creatine Kinase 34 (30-135) U/L Troponin I < 0.012 (0.000-0.034) ng/mL NT-Pro-B Natriuret Pep 60.1 (0-450) pg/mL Serum Total Protein 6.9 (6.3-8.2) g/dL Albumin 3.5 (3.5-5.0) g/dL Lipase 72 (23-300) U/L Urinalys Dipstick Clnc Urine Color (YELLOW) Urine Appearance (CLEAR) Urine pH (5-6) Ur Specific [place] (1.005-1.025) POC Urine Protein Conf (Negative) Urine Ketones (NEGATIVE) Urine Nitrite (NEGATIVE) Urine Bilirubin (NEGATIVE) Urine Urobilinogen (0-1) mg/dL Urine Leukocytes (NEGATIVE) Urine WBC (Auto) (0-5) /HPF Urine RBC (Auto) (0-2) /HPF U Epithel Cells (Auto) (FEW) /HPF Urine Bacteria (Auto) (NEGATIVE) /HPF Urine RBC (0-5) Chandler/ul Urine Mucus (Auto) (NEGATIVE) /HPF Ur Culture Indicated? Urine Glucose (NEGATIVE) mg/dL - Progress Progress: improved, re-examined Air Movement: good Progress Note: 02/18/22 15:37 26-year-old with 28 weeks gestation is evaluated for lower chest/epigastric pain. EKG showed sinus rhythm without any ST elevation. She is given Pepcid/GI cocktail along with fluids as patient refused to have any pain medications. Chest x-ray negative for any acute cardiopulmonary findings and negative initial troponin. On reevaluation she is still have pain. Patient described this different than her routine GERD symptoms. I have given her IV Protonix as well and on reevaluation feeling a little more better. She still have pleuritic chest pain and I have discussed with Dr. Arceo patient's primary OB, reviewed history and current work-up and about obtaining CT chest to rule out PE he is okay with that. Discussed with patient in detail about risk and benefits of obtaining CT which she understands and wants to go ahead with CTA. CTA chest is negative for pulmonary embolism but does have small hiatal hernia. Second troponin is negative as well. Patient is better on reevaluation but not completely pain-free. She is still does not want any narcotic pain medicine. I would start her on omeprazole and I have discussed with her primary OB about it and he is okay with that. Discussed signs symptoms of worsening needing return to ER which she seems understanding. Stable for discharge. Blood Culture(s) Obtained: No Antibiotics given: No Discussed with : Ilya Counseled pt/family regarding: lab results, diagnosis, need for follow-up, rad results - Departure Departure Disposition: Home Clinical Impression: GERD with esophagitis, Chest pain during Condition: Stable Critical Care Time: No Referrals: ONEIL ARCEO DO [ACTIVE STAFF] - Follow Up with PCP/3 days KING OVIEDO MD [Primary Care Provider] - Follow Up with PCP/3 days Instructions: Acid Reflux and GERD in Adults (DC), Angina (DC) Additional Instructions: Take Tylenol as needed. Follow-up with your OB for reevaluation. Return to ER for worsening pain, difficulty breathing, pelvic cramping/vaginal bleeding discharge. Prescriptions: Omeprazole 40 mg PO DAILY #30
[2022-02-18 11:44] LABS: Absolute Neutrophil Ct (ANC) 4.84 x10^3/uL (1.4-6.9); Basophil (Absolute #) 0.03 x10^3/uL (0-0.4); Eosinophil % 0.2 % (0.00-5.0); Eosinophil (Absolute #) 0.01 x10^3/uL (0-0.5); Hematocrit 33.3 % (35-47); Hemoglobin 10.9 g/dL (12.0-16.0); Lymphocyte (Absolute #) 1.12 x10^3/uL (1.0-4.6); Lymphocytes % 17.3 % (24.0-44.0); Mean Cell Volume 89.3 fL (78-100); Mean Corpuscular Hemoglobin 29.2 pg (26-32); Mean Corpuscular Hgb Concent. 32.7 g/dL (32-36); Mean Platelet Volume 10.3 fL (7.5-11.0); Monocyte (Absolute #) 0.45 x10^3/uL (0.0-1.3); Monocytes % 6.9 % (0.0-12.0); Neutrophil % 74.5 % (36.0-66.0); Platelet Count 153 x10^3/uL (150-450); Red Blood Count 3.73 x10^6/uL (4.1-5.4); Red Cell Distribution Width 13.6 % (11.5-14.0); White Blood Count 6.5 x10^3/uL (4.0-10.5)
[2022-02-18 12:02] LABS: ALBUMIN 3.5 g/dL (3.5-5.0); ALKALINE PHOSPHATASE 94 U/L (38-126); ANION GAP 14.8 MEQ/L (5-15); BLOOD UREA NITROGEN 5 mg/dL (7-17); CHLORIDE 104 mmol/L (98-107); CK-Creatinine Phosphokinase 34 U/L (30-135); Calcium 8.8 mg/dL (8.4-10.2); Carbon Dioxide 18 mmol/L (22-30); Creatinine 1 0.69 mg/dL (0.52-1.04); EST GLOMERULAR FILTRATION RATE > 60.0 ML/MIN; Glucose 77 mg/dL (74-106); LIPASE 72 U/L (23-300); NT PRO BNP 60.1 pg/mL (0-450); Potassium 4.1 mmol/L (3.5-5.1); SGOT/AST 21 U/L (14-36); SGPT/ALT 10 U/L (0-35); SODIUM 133 mmol/L (137-145); Total Protein 6.9 g/dL (6.3-8.2)
--- NOTE | 2022-02-18 12:02 | XRAY ---
Indication: Chest pain. 28 weeks . Comparison: None Portable chest demonstrates normal heart, lungs, and bony thorax.
[2022-02-18] MEDS ORDERED: PROTONIX 40 MG IV IV ONE ×2 (12:39→12:50)
[2022-02-18 13:10] LABS: Appearance CLEAR (CLEAR); Bilirubin SMALL (NEGATIVE); Dipstick done @ ? MAIN LAB; Glucose NEGATIVE (NEGATIVE); Ketones >=160 (NEGATIVE); Nitrite NEGATIVE (NEGATIVE); Ph 5.5 (5-6); Protein,Urine Dip NEGATIVE (Negative); RBC NEGATIVE Ery/ul (0-5); Specific Gravity >=1.030 (1.005-1.025); Urobilinogen 0.2 mg/dL (0-1)
[2022-02-18 13:12] LABS: Epithelial Cells RARE /HPF (FEW); Mucus SLIGHT /HPF (NEGATIVE); WBC 0-2 /HPF (0-5)
[2022-02-18 13:16] LABS: Urine Cultured Indicated? NO
[2022-02-18 14:47] VITALS: O2SAT 100
--- NOTE | 2022-02-18 14:49 | XRAY ---
Indication: Chest pain. Elevated d-dimer. Approximately 26 weeks . I spoke with ordering clinician, Dr. Truong to obtain more information on this patient. He informs me chest pain is pleuritic, worse with respiration. He also informs me he spoke with Dr. Arceo who OK'd patient for CT PE exam. Multiple contiguous axial images obtained through the chest using 65 cc Isovue 370 contrast and PE protocol. Comparison: None Adequate opacification of the pulmonary arteries to include the lobar and segmental branches. No pulmonary embolus. Heart not enlarged. Aorta is normal in course and caliber. No pathologic mediastinal/hilar lymphadenopathy. Small hiatal hernia. Lungs are inflated with minimal bilateral dependent atelectasis. No suspicious pulmonary mass, infiltrate, or effusion. Bony thorax intact. Limited upper abdomen demonstrates partially visualized 1.5 cm right renal parapelvic cyst. Impression: Normal CT PE exam. Incidental small hiatal hernia and right renal cyst.
[2022-02-18 16:04] VITALS: BP 122/75; PULSE 100
== END 2022-02-18 16:05 | disposition home or self-care (01) ==
LOC: ED 11:03
DX: K21.00 Gastro-esophageal reflux disease with esophagitis, without bleeding (principal); R07.9 Chest pain, unspecified; Z33.1 Pregnant state, incidental; R10.13 Epigastric pain; R11.2 Nausea with vomiting, unspecified; Z28.310 Unvaccinated for COVID-19
CPT/HCPCS: 36000; 36415; 71045; 71260; 80053; 81015; 82550; 83690; 83880; 84484; 85025; 85379; 93005; 93041; 96360; 96361; 96374; 96375; 99285; A9270-GY

== ENCOUNTER 2022-05-05 06:06 | Inpatient (IN) | payer OTHER ==
[~2022-05-05 06:06] MED LIST changes: -Lactated Ringers 1,000 ML IV SCH; +PITOCIN 30 UNITS/ LR 500 ML 30 UNITS/500 ML PLAST..BAG IV SCH; -PITOCIN 30 UNITS/ LR 500 ML 500 ML IV SCH; +TYLENOL EXTRA STRENGTH 500 MG PO PRN; -XYLOCAINE 1% HCL 20 ML MDV IJ PRN; +Zofran 4 MG/2 ML VIAL IV PRN
[2022-05-05 06:55] LABS: Absolute Neutrophil Ct (ANC) 6.04 x10^3/uL (1.4-6.9); Basophil (Absolute #) 0.05 x10^3/uL (0-0.4); Eosinophil % 0.9 % (0.00-5.0); Eosinophil (Absolute #) 0.08 x10^3/uL (0-0.5); Hemoglobin 10.3 g/dL (12.0-16.0); Lymphocytes % 27.1 % (24.0-44.0); Mean Cell Volume 81.9 fL (78-100); Mean Corpuscular Hemoglobin 25.6 pg (26-32); Mean Corpuscular Hgb Concent. 31.2 g/dL (32-36); Mean Platelet Volume 9.4 fL (7.5-11.0); Monocyte (Absolute #) 0.51 x10^3/uL (0.0-1.3); Monocytes % 5.5 % (0.0-12.0); Neutrophil % 65.6 % (36.0-66.0); Platelet Count 269 x10^3/uL (150-450); Red Blood Count 4.03 x10^6/uL (4.1-5.4); Red Cell Distribution Width 14.4 % (11.5-14.0); White Blood Count 9.2 x10^3/uL (4.0-10.5)
[2022-05-05] MEDS ORDERED: Ephedrine Sulfate 50 MG/ML IV PRN (07:00)
[2022-05-05] MEDS ORDERED: FENTANYL 2 MCG-BUPIV 0.125%-NS 250 ML Epidur 250 ML EPIDURAL SCH (07:00)
[2022-05-05] MEDS ORDERED: Lactated Ringers 1,000 ML IV ONE (07:00)
[2022-05-05 07:55] LABS: Bacteria RARE /HPF (NEGATIVE); Epithelial Cells RARE /HPF (FEW); Mucus SLIGHT /HPF (NEGATIVE)
[2022-05-05] MEDS ORDERED: Dermoplast Spray TP PRN (08:00)
[2022-05-05] MEDS ORDERED: PITOCIN 30 UNITS/ LR 500 ML 30 UNITS/500 ML PLAST..BAG IV SCH (08:00)
[2022-05-05] MEDS ORDERED: LANSINOH 40 GM TOP PRN (08:00)
[2022-05-05] MEDS ORDERED: Anucort-HC SUPPOSITORY PR PRN (08:00)
[2022-05-05] MEDS ORDERED: XYLOCAINE 1% HCL 20 ML MDV IJ PRN (08:00)
[2022-05-05] MEDS ORDERED: TUCKS TP PRN (08:00)
[2022-05-05] MEDS ORDERED: Dulcolax 10 MG SUPP PR PRN (08:00)
[2022-05-05] MEDS ORDERED: CORTISONE 1% CREAM TP PRN (08:00)
[2022-05-05] MEDS ORDERED: Mylicon 80MG PO PRN (08:00)
[2022-05-05 08:02] LABS: Dipstick done @ ? MAIN LAB
[2022-05-05 08:02] LABS: ABO TYPING A; Antibody Screen NEGATIVE (NEGATIVE); RH TYPING POSITIVE
[2022-05-05 08:03] LABS: Appearance CLEAR (CLEAR); Bilirubin NEGATIVE (NEGATIVE); Glucose NEGATIVE (NEGATIVE); Ketones NEGATIVE (NEGATIVE); Nitrite NEGATIVE (NEGATIVE); Protein,Urine Dip NEGATIVE (Negative); RBC TRACE-INTACT Ery/ul (0-5); Urobilinogen 0.2 mg/dL (0-1)
[2022-05-05 08:04] LABS: Urine Cultured Indicated? YES
[2022-05-05 08:58] LABS: Amphetamine,Urine NEGATIVE (NEGATIVE); Barbiturate,Urine NEGATIVE (NEGATIVE); Benzodiazepine,Urine NEGATIVE (NEGATIVE); Cocaine,Urine NEGATIVE (NEGATIVE); Methadone,Urine NEGATIVE (NEGATIVE); Opiate,Urine NEGATIVE (NEGATIVE); PCP,Urine NEGATIVE (NEGATIVE); THC,Urine NEGATIVE (NEGATIVE)
[2022-05-05] MEDS: Lactated Ringers 1,000 ML IV SCH (20:54)
[2022-05-05] MEDS: Docusate Sodium 100 MG PO SCH (21:42)
[2022-05-05] MEDS: MOTRIN 400 MG PO PRN (21:46)
[2022-05-06 05:19] LABS: Basophil (Absolute #) 0.07 x10^3/uL (0-0.4); Eosinophil (Absolute #) 0.11 x10^3/uL (0-0.5); Hematocrit 26.1 % (35-47); Hemoglobin 8.4 g/dL (12.0-16.0); Mean Cell Volume 82.1 fL (78-100); Mean Corpuscular Hemoglobin 26.4 pg (26-32); Mean Corpuscular Hgb Concent. 32.2 g/dL (32-36); Mean Platelet Volume 9.7 fL (7.5-11.0); Monocyte (Absolute #) 0.78 x10^3/uL (0.0-1.3); Monocytes % 6.9 % (0.0-12.0); Neutrophil % 60.9 % (36.0-66.0); Platelet Count 238 x10^3/uL (150-450); Red Blood Count 3.18 x10^6/uL (4.1-5.4); Red Cell Distribution Width 14.5 % (11.5-14.0); White Blood Count 11.3 x10^3/uL (4.0-10.5)
--- NOTE | 2022-05-06 07:21 | PCM.NOTE ---
Date and Time: 05/06/22718 Subjective Assessment: ppd 1 pt resting in bed and doing well vss afebrile abd; soft uterus; firm lochia; mild hgb; 8.4 a/p sp ppd 1 dc home tomorrow fu office 3 wks OBJECTIVE DATA Vital Signs: Vital Signs - 24 hr Temp Pulse Resp BP BP Pulse Ox 05/06/22 05:09 67 16 103/59 99 05/06/22 03:56 97.7 F 63 17 90/55 99 05/06/22 00:00 98.6 F 98 H 16 103/62 98 05/05/22 20:00 98.1 F 97 H 17 109/62 99 05/05/22 16:00 98.8 F 76 18 116/59 99 05/05/22 13:40 61 18 101/62 100 05/05/22 12:40 58 L 18 103/72 05/05/22 11:59 78 18 113/65 05/05/22 11:40 60 18 114/66 05/05/22 11:25 55 L 18 113/61 05/05/22 11:10 64 20 113/67 05/05/22 10:40 98.8 F 76 18 99 05/05/22 10:30 79 22 107/73 05/05/22 10:15 62 18 108/66 05/05/22 10:00 67 18 105/61 05/05/22 09:45 71 18 96/59 05/05/22 09:30 79 18 97/66 05/05/22 09:15 78 18 93/61 05/05/22 09:00 97.8 F 96 H 18 93/61 82 L 05/05/22 08:45 97.8 F 96 H 18 97/56 98 05/05/22 08:30 97.8 F 76 18 100/62 100 05/05/22 08:15 97.8 F 75 18 101/60 100 05/05/22 08:00 97.8 F 67 18 109/61 111/72 100 05/05/22 07:45 72 18 122/78 100 05/05/22 07:30 77 18 119/67 100 Pain Assessment - Last Documented Pain Intensity 0 Pain Scale Used 0-10 Pain Scale Intake and Output: Intake & Output 05/03/22 05/04/22 05/05/2222 11:59 11:59 11:59 11:59 Intake Total 1999 Output Total 100 Balance -100 1999 Weight 83.915 kg Lab Results: Lab Results-Last 24 Hours 05/05/22 05/05/22 05/05/22 Range/Units 06:17 06:30 06:35 WBC (4.0-10.5) x10^3/uL RBC (4.1-5.4) x10^6/uL Hgb (12.0-16.0) g/dL Hct (35-47) % MCV (78-100) fL MCH (26-32) pg MCHC (32-36) g/dL RDW (11.5-14.0) % Plt Count (150-450) x10^3/uL MPV (7.5-11.0) fL Gran % (36.0-66.0) % Immature Gran % (Auto) (0.00-0.4) % Nucleat RBC Rel Count (0.00-0.1) % Eos # (Auto) (0-0.5) x10^3/uL Immature Gran # (Auto) (0.00-0.03) x10^3u/L Absolute Lymphs (auto) (1.0-4.6) x10^3/uL Absolute Monos (auto) (0.0-1.3) x10^3/uL Absolute Nucleated RBC (0.00-0.01) x10^3u/L Lymphocytes % (24.0-44.0) % Monocytes % (0.0-12.0) % Eosinophils % (0.00-5.0) % Basophils % (0.0-0.4) % Absolute Granulocytes (1.4-6.9) x10^3/uL Basophils # (0-0.4) x10^3/uL Urinalys Dipstick Clnc MAIN LAB Urine Color YELLOW (YELLOW) Urine Appearance CLEAR (CLEAR) Urine pH 7.0 (5-6) Ur Specific [place] 1.020 (1.005-1.025) POC Urine Protein Conf NEGATIVE (Negative) Urine Ketones NEGATIVE (NEGATIVE) Urine Nitrite NEGATIVE (NEGATIVE) Urine Bilirubin NEGATIVE (NEGATIVE) Urine Urobilinogen 0.2 (0-1) mg/dL Urine Leukocytes TRACE (NEGATIVE) Urine WBC (Auto) 3-5 (0-5) /HPF Urine RBC (Auto) NONE (0-2) /HPF U Epithel Cells (Auto) RARE (FEW) /HPF Urine Bacteria (Auto) RARE (NEGATIVE) /HPF Urine RBC TRACE-INTACT (0-5) Chandler/ul Urine Mucus (Auto) SLIGHT (NEGATIVE) /HPF Ur Culture Indicated? YES Urine Glucose NEGATIVE (NEGATIVE) mg/dL Urine Opiates Level NEGATIVE (NEGATIVE) Ur Methadone NEGATIVE (NEGATIVE) Urine Barbiturates NEGATIVE (NEGATIVE) Ur Phencyclidine (PCP) NEGATIVE (NEGATIVE) Urine Amphetamine NEGATIVE (NEGATIVE) U Benzodiazepine Level NEGATIVE (NEGATIVE) Urine Cocaine NEGATIVE (NEGATIVE) Urine Marijuana (THC) NEGATIVE (NEGATIVE) ABO Group A Rh Factor POSITIVE Antibody Screen NEGATIVE (NEGATIVE) 05/06/22 Range/Units 05:05 WBC 11.3 H (4.0-10.5) x10^3/uL RBC 3.18 L (4.1-5.4) x10^6/uL Hgb 8.4 L (12.0-16.0) g/dL Hct 26.1 L (35-47) % MCV 82.1 (78-100) fL MCH 26.4 (26-32) pg MCHC 32.2 (32-36) g/dL RDW 14.5 H (11.5-14.0) % Plt Count 238 (150-450) x10^3/uL MPV 9.7 (7.5-11.0) fL Gran % 60.9 (36.0-66.0) % Immature Gran % (Auto) 0.6 H (0.00-0.4) % Nucleat RBC Rel Count 0.0 (0.00-0.1) % Eos # (Auto) 0.11 (0-0.5) x10^3/uL Immature Gran # (Auto) 0.07 H (0.00-0.03) x10^3u/L Absolute Lymphs (auto) 3.40 (1.0-4.6) x10^3/uL Absolute Monos (auto) 0.78 (0.0-1.3) x10^3/uL Absolute Nucleated RBC 0.00 (0.00-0.01) x10^3u/L Lymphocytes % 30.0 (24.0-44.0) % Monocytes % 6.9 (0.0-12.0) % Eosinophils % 1.0 (0.00-5.0) % Basophils % 0.6 (0.0-0.4) % Absolute Granulocytes 6.90 (1.4-6.9) x10^3/uL Basophils # 0.07 (0-0.4) x10^3/uL Urinalys Dipstick Clnc Urine Color (YELLOW) Urine Appearance (CLEAR) Urine pH (5-6) Ur Specific [place] (1.005-1.025) POC Urine Protein Conf (Negative) Urine Ketones (NEGATIVE) Urine Nitrite (NEGATIVE) Urine Bilirubin (NEGATIVE) Urine Urobilinogen (0-1) mg/dL Urine Leukocytes (NEGATIVE) Urine WBC (Auto) (0-5) /HPF Urine RBC (Auto) (0-2) /HPF U Epithel Cells (Auto) (FEW) /HPF Urine Bacteria (Auto) (NEGATIVE) /HPF Urine RBC (0-5) Chandler/ul Urine Mucus (Auto) (NEGATIVE) /HPF Ur Culture Indicated? Urine Glucose (NEGATIVE) mg/dL Urine Opiates Level (NEGATIVE) Ur Methadone (NEGATIVE) Urine Barbiturates (NEGATIVE) Ur Phencyclidine (PCP) (NEGATIVE) Urine Amphetamine (NEGATIVE) U Benzodiazepine Level (NEGATIVE) Urine Cocaine (NEGATIVE) Urine Marijuana (THC) (NEGATIVE) ABO Group Rh Factor Antibody Screen (NEGATIVE) Assessment/Plan (1) Vaginal delivery Current Visit: No Status: Acute Code(s): O80 - ENCOUNTER FOR FULL-TERM UNCOMPLICATED DELIVERY
--- NOTE | 2022-05-06 07:23 | PCM.DS ---
Discharge Summary Date of Admission: 05/05/22 07:15 Admitting Physician: ONEIL GLASS DO Consults: Consults on Case 05/05/22 08:00 Notify Anesthesia Provider PRN 05/05/22 11:38 Navigation ONCE Primary Care Provider: KING OVIEDO ENRIQUETA Allergies Allergies Cephalosporins Allergy (Verified 05/05/22 06:24) nitrofurantoin [From Macrobid] Adverse Reaction (Verified 05/05/22 06:24) Nausea and Vomiting Hospital Summary - Hospital Course Hospital Course: pt admitted on may 05 for pitocin induction with hx of previous csection and underwent induction without complication delivering live baby boy. during postp artum period did well. pt was noted having right labial tear that was repaired with 3-0 vicryl suture. pt at this time feeling well and stable for discharge on may 07. pt advised to continue iron supplementation with vitamins and advised to fu in office in 3 wks. all questions answered to her satisfactoin. - Vitals & Intake/Output Vital Signs: Vital Signs Temperature 97.7 F 05/06/22 03:56 Pulse Rate 67 05/06/22 05:09 Respiratory Rate 16 05/06/22 05:09 Blood Pressure 103/59 05/06/22 05:09 O2 Sat by Pulse Oximetry 99 05/06/22 05:09 Intake & Output: Intake & Output 05/03/22 05/04/22 05/05/22 05/06/22 11:59 11:59 11:59 11:59 Intake Total 2000 Output Total 100 Balance -100 1999 Weight 83.915 kg - Lab Result Diagrams: 05/06/22 05:05 Lab Results-Last 24 Hrs: Lab Results-Last 24 Hours 05/05/22 05/05/22 05/05/22 Range/Units 06:17 06:30 06:35 WBC (4.0-10.5) x10^3/uL RBC (4.1-5.4) x10^6/uL Hgb (12.0-16.0) g/dL Hct (35-47) % MCV (78-100) fL MCH (26-32) pg MCHC (32-36) g/dL RDW (11.5-14.0) % Plt Count (150-450) x10^3/uL MPV (7.5-11.0) fL Gran % (36.0-66.0) % Immature Gran % (Auto) (0.00-0.4) % Nucleat RBC Rel Count (0.00-0.1) % Eos # (Auto) (0-0.5) x10^3/uL Immature Gran # (Auto) (0.00-0.03) x10^3u/L Absolute Lymphs (auto) (1.0-4.6) x10^3/uL Absolute Monos (auto) (0.0-1.3) x10^3/uL Absolute Nucleated RBC (0.00-0.01) x10^3u/L Lymphocytes % (24.0-44.0) % Monocytes % (0.0-12.0) % Eosinophils % (0.00-5.0) % Basophils % (0.0-0.4) % Absolute Granulocytes (1.4-6.9) x10^3/uL Basophils # (0-0.4) x10^3/uL Urinalys Dipstick Clnc MAIN LAB Urine Color YELLOW (YELLOW) Urine Appearance CLEAR (CLEAR) Urine pH 7.0 (5-6) Ur Specific Ava 1.020 (1.005-1.025) POC Urine Protein Conf NEGATIVE (Negative) Urine Ketones NEGATIVE (NEGATIVE) Urine Nitrite NEGATIVE (NEGATIVE) Urine Bilirubin NEGATIVE (NEGATIVE) Urine Urobilinogen 0.2 (0-1) mg/dL Urine Leukocytes TRACE (NEGATIVE) Urine WBC (Auto) 3-5 (0-5) /HPF Urine RBC (Auto) NONE (0-2) /HPF U Epithel Cells (Auto) RARE (FEW) /HPF Urine Bacteria (Auto) RARE (NEGATIVE) /HPF Urine RBC TRACE-INTACT (0-5) Chandler/ul Urine Mucus (Auto) SLIGHT (NEGATIVE) /HPF Ur Culture Indicated? YES Urine Glucose NEGATIVE (NEGATIVE) mg/dL Urine Opiates Level NEGATIVE (NEGATIVE) Ur Methadone NEGATIVE (NEGATIVE) Urine Barbiturates NEGATIVE (NEGATIVE) Ur Phencyclidine (PCP) NEGATIVE (NEGATIVE) Urine Amphetamine NEGATIVE (NEGATIVE) U Benzodiazepine Level NEGATIVE (NEGATIVE) Urine Cocaine NEGATIVE (NEGATIVE) Urine Marijuana (THC) NEGATIVE (NEGATIVE) ABO Group A Rh Factor POSITIVE Antibody Screen NEGATIVE (NEGATIVE) 05/06/22 Range/Units 05:05 WBC 11.3 H (4.0-10.5) x10^3/uL RBC 3.18 L (4.1-5.4) x10^6/uL Hgb 8.4 L (12.0-16.0) g/dL Hct 26.1 L (35-47) % MCV 82.1 (78-100) fL MCH 26.4 (26-32) pg MCHC 32.2 (32-36) g/dL RDW 14.5 H (11.5-14.0) % Plt Count 238 (150-450) x10^3/uL MPV 9.7 (7.5-11.0) fL Gran % 60.9 (36.0-66.0) % Immature Gran % (Auto) 0.6 H (0.00-0.4) % Nucleat RBC Rel Count 0.0 (0.00-0.1) % Eos # (Auto) 0.11 (0-0.5) x10^3/uL Immature Gran # (Auto) 0.07 H (0.00-0.03) x10^3u/L Absolute Lymphs (auto) 3.40 (1.0-4.6) x10^3/uL Absolute Monos (auto) 0.78 (0.0-1.3) x10^3/uL Absolute Nucleated RBC 0.00 (0.00-0.01) x10^3u/L Lymphocytes % 30.0 (24.0-44.0) % Monocytes % 6.9 (0.0-12.0) % Eosinophils % 1.0 (0.00-5.0) % Basophils % 0.6 (0.0-0.4) % Absolute Granulocytes 6.90 (1.4-6.9) x10^3/uL Basophils # 0.07 (0-0.4) x10^3/uL Urinalys Dipstick Clnc Urine Color (YELLOW) Urine Appearance (CLEAR) Urine pH (5-6) Ur Specific Ava (1.005-1.025) POC Urine Protein Conf (Negative) Urine Ketones (NEGATIVE) Urine Nitrite (NEGATIVE) Urine Bilirubin (NEGATIVE) Urine Urobilinogen (0-1) mg/dL Urine Leukocytes (NEGATIVE) Urine WBC (Auto) (0-5) /HPF Urine RBC (Auto) (0-2) /HPF U Epithel Cells (Auto) (FEW) /HPF Urine Bacteria (Auto) (NEGATIVE) /HPF Urine RBC (0-5) Chandler/ul Urine Mucus (Auto) (NEGATIVE) /HPF Ur Culture Indicated? Urine Glucose (NEGATIVE) mg/dL Urine Opiates Level (NEGATIVE) Ur Methadone (NEGATIVE) Urine Barbiturates (NEGATIVE) Ur Phencyclidine (PCP) (NEGATIVE) Urine Amphetamine (NEGATIVE) U Benzodiazepine Level (NEGATIVE) Urine Cocaine (NEGATIVE) Urine Marijuana (THC) (NEGATIVE) ABO Group Rh Factor Antibody Screen (NEGATIVE) Final Diagnosis/Problem List - Final Discharge Diagnosis/Problem (1) Vaginal delivery Current Visit: No Status: Acute Code(s): O80 - ENCOUNTER FOR FULL-TERM UNCOMPLICATED DELIVERY - Discharge Disposition: Home, Self-Care Condition: Stable Prescriptions: No Action Vitamins/Fe Sulf/FA [ Tablet] 1 tab PO DAILY Follow up with: KING OVIEDO MD [Primary Care Provider] - ONEIL GLASS DO [ACTIVE STAFF] - 3 weeks
[2022-05-06] MEDS: MOTRIN 400 MG PO PRN ×2 (08:09→21:24)
[2022-05-06] MEDS: Docusate Sodium 100 MG PO SCH ×2 (09:59→21:27)
[2022-05-06] MEDS ORDERED: Adacel Vial IM ONE (10:00)
[2022-05-06] MEDS ORDERED: FERREX 150 PO SCH (10:00)
[2022-05-06 11:41] LABS: HBsAg Screen Negative (Negative)
[2022-05-06 22:48] VITALS: O2SAT 99
[2022-05-07 08:24] VITALS: BP 109/75; PULSE 88
== END 2022-05-07 08:26 | disposition home or self-care (01) | DRG 807 ==
LOC: OB 06:06 → OBSVTOIN 07:15 → OB 07:15
PROVIDERS: ADMIT Obstetrics & Gynecology; ATTEND Obstetrics & Gynecology
PROC: 10E0XZZ Delivery of Products of Conception, External Approach (ICD-10-PCS; principal; 2022-05-05)
PROC: 0UQMXZZ Repair Vulva, External Approach (ICD-10-PCS; 2022-05-05)
DX: O34.219 Maternal care for unspecified type scar from previous cesarean delivery (principal); Z37.0 Single live birth; O70.0 First degree perineal laceration during delivery; N85.8 Other specified noninflammatory disorders of uterus; Z3A.39 39 weeks gestation of pregnancy
CPT/HCPCS: 36415; 59612; 80307; 81015; 85025; 86850; 86900; 86901; 87086; 87340; 90471; 90715; J2590; A9270-GY

== ENCOUNTER 2022-10-17 17:32 | Emergency (ER) | payer OTHER ==
[2022-10-17 17:51] VITALS: BP 112/77
--- NOTE | 2022-10-17 18:36 | ERPHSYRPT ---
- History of Present Illness Source: patient Exam Limitations: no limitations Patient Subjective Stated Complaint: Well adult check-clogged left milk duct Triage Nursing Assessment: Patient ambulated back to ED and transferred self to bed. Patient A+O X3. Patient's skin pink, warm and dry. Patient complains of clogged milk duct on left breast since Monday. Patient did speak to lacation intelligence consultant around 1500 and was told to do hot compresses, express milk, massage and nurse on all fours. Patient states she started running temp at 1500 at 103.2. Left breast distal to nipple noted to have hard area and warmth. Patient complains of pain 4/10. Physician History: 27 yo lactating WF presents w L breast pain and possible edema. Pt states that she has had a fever and pain level is a 4. She is currently breast feeding. Pt denies nipple drainage. Timing/Duration: other (3 days) Severity: mild Modifying Factors: Improves With: nothing Associated Symptoms: denies symptoms Allergies/Adverse Reactions: Cephalosporins Allergy (Verified 10/17/22 17:42) nitrofurantoin [From Macrobid] Adverse Reaction (Verified 10/17/22 17:42) Nausea and Vomiting Hx Tetanus, Diphtheria Vaccination/Date Given: No Hx Influenza Vaccination/Date Given: No Hx Pneumococcal Vaccination/Date Given: No Immunizations Up to Date: Yes Travel Risk - International Travel Have you traveled outside of the country in past 3 weeks: No - Coronavirus Screening Are you exhibiting any of the following symptoms?: No - Vaccine Status Have you recieved a Covid-19 vaccination: No - Review of Systems Constitutional: No Symptoms, Fever Eyes: No Symptoms Ears, Nose, & Throat: No Symptoms Respiratory: No Symptoms Cardiac: No Symptoms Abdominal/Gastrointestinal: No Symptoms Genitourinary Symptoms: No Symptoms Musculoskeletal: No Symptoms Skin: No Symptoms Neurological: No Symptoms Psychological: No Symptoms Endocrine: No Symptoms Hematologic/Lymphatic: No Symptoms Immunological/Allergic: No Symptoms - Past Medical History Pertinent Past Medical History: No Neurological History: No Pertinent History ENT History: No Pertinent History Cardiac History: No Pertinent History Respiratory History: No Pertinent History Endocrine Medical History: No Pertinent History Musculoskeletal History: No Pertinent History GI Medical History: No Pertinent History History: No Pertinent History Psycho-Social History: No Pertinent History Female Reproductive Disorders: Other Other Medical History: D&C 01/24/16, 2020 - Past Surgical History Past Surgical History: Yes Neuro Surgical History: No Pertinent History Cardiac: No Pertinent History Respiratory: No Pertinent History Gastrointestinal: No Pertinent History Genitourinary: No Pertinent History Musculoskeletal: No Pertinent History Female Surgical History: No Pertinent History, Section Other Surgical History: tubes in ears as a child. D&C 01/24/16 - Social History Smoking Status: Never smoker Exposure to second hand smoke: No Alcohol Use: None Drug Use: none Patient Lives Alone: No Significant Family History: no pertinent family hx - Female History Hx Last Menstrual Period: July 2021 Hx Now: No - Nursing Vital Signs Nursing Vital Signs: Initial Vital Signs Temperature 98.1 F 10/17/22 17:44 Pulse Rate 116 H 10/17/22 17:44 Respiratory Rate 19 10/17/22 17:44 Blood Pressure 112/77 10/17/22 17:44 O2 Sat by Pulse Oximetry 98 10/17/22 17:44 Pain Scale Pain Intensity 4 Tachy - Physical Exam General Appearance: no apparent distress Eye Exam: PERRL/EOMI, eyes nml inspection Ears, Nose, Throat Exam: normal ENT inspection, TMs normal, pharynx normal, moist mucous membranes Neck Exam: normal inspection, non-tender, supple Respiratory Exam: normal breath sounds, lungs clear, airway intact Cardiovascular Exam: tachycardia, capillary refill <2 sec, No murmur Gastrointestinal/Abdomen Exam: soft, normal bowel sounds Back Exam: normal inspection, normal range of motion, No CVA tenderness Extremity Exam: normal inspection, normal range of motion Neurologic Exam: alert, oriented x 3, cooperative, superintendent geophysical laboratory II-XII nml as tested, normal mood/affect, nml cerebellar function, nml station & gait, sensation nml Skin Exam: other (L breast/No erythema/No nipple discharge/No palpable masses/Mild TTP laterally) SpO2 Interpretation: normal SpO2: 98 O2 Delivery: Room Air - Course Nursing assessment & vital signs reviewed: Yes - Progress Progress Note: 10/17/22 20:15 Nursing note and vital signs reviewed No housing or food insecurities noted No evidence of acute mastitis on PE but will give pt Rx for Amoxil if symptoms worsen Pt to follow up with PCP or Ob 10/17/22 21:55 Counseled pt/family regarding: diagnosis, need for follow-up - Departure Departure Disposition: Home Clinical Impression: Mastitis Condition: Stable Critical Care Time: No Referrals: KING OVIEDO MD [Primary Care Provider] - Follow up/PCP as directed Instructions: Mastitis (DC) Additional Instructions: Warm compresses Start amoxicillin if pain increases, if you develop a persistent temperature greater than 100.5, or increased swelling. Follow up with your Ob or family MD in 1-2 days Prescriptions: Amoxicillin 875 mg PO BID #20 tablet
[2022-10-17 18:59] VITALS: PULSE 70
[2022-10-17 20:17] VITALS: O2SAT 98
== END 2022-10-17 18:59 | disposition home or self-care (01) ==
LOC: ED 17:32
DX: N61.0 Mastitis without abscess (principal); R50.9 Fever, unspecified; Z28.310 Unvaccinated for COVID-19
CPT/HCPCS: 99281

== ENCOUNTER 2023-12-01 10:22 | Observation (INO) | payer OTHER ==
--- NOTE | 2023-12-01 10:36 | ERPHSYRPT ---
- History of Present Illness Time Seen by Provider: 12/01/23 10:31 Source: patient Exam Limitations: no limitations Physician History: This is a 28-year-old female who presents to the emergency department with significant vaginal bleeding. She fell so feels a little dizzy and had episode of visual changes that have subsided. Yesterday, patient noticed some spotting vaginally. This morning she noticed suprapubic cramping followed by significant vaginal bleeding and passage of a fetus. Patient states that she had saturated 4 pads and 2 towels prior to arrival to the emergency department. Patient stated that was approximately 12 weeks . Patient states that she has had to have a D&C in the past. She currently states that she has no significant abdominal pain. Dr. Oviedo is patient's district court justice. Patient states her last meal was eaten last evening. And she only had a small amount of water prior to arrival to the emergency department. Timing/Duration: yesterday, worse Quality: cramping (Suprapubic/pelvic) Onset Location: abdominal pain (Suprapubic/pelvic pain this morning), pelvic pain (This morning. It is now resolved) Severity of Pain-Max: mild (To moderate) Severity of Pain-Current: none Sexual intercourse history: non-contributory Associated Symptoms: abdominal pain (Suprapubic/pelvic. Now resolved), vaginal discharge Allergies/Adverse Reactions: Cephalosporins Allergy (Verified 12/01/23 10:32) nitrofurantoin [From Macrobid] Adverse Reaction (Verified 12/01/23 10:32) Nausea and Vomiting Home Medications: Pnv 119/Iron Fum/Folic Acid [ 19 Tablet] 1 tab PO DAILY 12/01/23 [History] Hx Tetanus, Diphtheria Vaccination/Date Given: No Hx Influenza Vaccination/Date Given: No Hx Pneumococcal Vaccination/Date Given: No Travel Risk - International Travel Have you traveled outside of the country in past 3 weeks: No - Coronavirus Screening Are you exhibiting any of the following symptoms?: No Close contact with a COVID-19 positive Pt in past 14-21 Days: No - Vaccine Status Have you recieved a Covid-19 vaccination: No - Review of Systems Constitutional: No Symptoms Eyes: No Symptoms Ears, Nose, & Throat: No Symptoms Respiratory: No Symptoms Cardiac: No Symptoms Abdominal/Gastrointestinal: No Symptoms Genitourinary Symptoms: No Symptoms Musculoskeletal: No Symptoms - Past Medical History Pertinent Past Medical History: No Neurological History: No Pertinent History ENT History: No Pertinent History Cardiac History: No Pertinent History Respiratory History: No Pertinent History Endocrine Medical History: No Pertinent History Musculoskeletal History: No Pertinent History GI Medical History: No Pertinent History History: No Pertinent History Psycho-Social History: No Pertinent History Female Reproductive Disorders: Other Other Medical History: D&C 01/24/16, 2020 - Past Surgical History Past Surgical History: Yes Neuro Surgical History: No Pertinent History Cardiac: No Pertinent History Respiratory: No Pertinent History Gastrointestinal: No Pertinent History Genitourinary: No Pertinent History Musculoskeletal: No Pertinent History Female Surgical History: No Pertinent History, Section Other Surgical History: tubes in ears as a child. D&C 01/24/16 - Social History Smoking Status: Never smoker Exposure to second hand smoke: No Alcohol Use: None Drug Use: none Patient Lives Alone: No Significant Family History: no pertinent family hx - Nursing Vital Signs Nursing Vital Signs: Initial Vital Signs Temperature 98 F 12/01/23 10:23 Pulse Rate 100 H 12/01/23 10:23 Respiratory Rate 19 12/01/23 10:23 Blood Pressure 108/91 12/01/23 10:23 O2 Sat by Pulse Oximetry 97 12/01/23 10:23 Pain Scale Pain Intensity 0 - Physical Exam General Appearance: mild distress, alert, anxiety Eye Exam: PERRL/EOMI, eyes nml inspection Ears, Nose, Throat Exam: normal ENT inspection, moist mucous membranes Neck Exam: normal inspection, non-tender, supple, full range of motion Respiratory Exam: normal breath sounds, lungs clear, airway intact, No chest tenderness, No respiratory distress Cardiovascular Exam: regular rate/rhythm, normal heart sounds, normal peripheral pulses Gastrointestinal/Abdomen Exam: soft, normal bowel sounds, No tenderness Pelvic Exam: not done Rectal Exam: not done Back Exam: normal inspection, normal range of motion, No CVA tenderness, No vertebral tenderness - Course Nursing assessment & vital signs reviewed: Yes Ordered Tests: Active Orders 24 hr Category Date Time Status IV Insertion STAT Care 12/01/23 10:36 Active PELVIS TRANS VAGINAL [US] Stat Exams 12/01/23 10:57 Taken CBC W DIFF Stat Lab 12/01/23 10:30 Completed CMP Stat Lab 12/01/23 10:30 Completed HCG, Quantitative (Inhouse) Stat Lab 12/01/23 10:30 Completed PROTIME WITH INR Stat Lab 12/01/23 10:30 Completed UA W/RFX UR CULTURE Stat Lab 12/01/23 10:37 Ordered Medication Summary Generic Name Dose Route Start Last Admin Trade Name Phillip PRN Reason Stop Dose Admin Tranexamic Acid 1,000 mg/ 110 mls @ 660 mls/hr 12/01/23 11:45 Sodium Chloride IV 12/01/23 11:54 ONCE ONE Discontinued Medications Generic Name Dose Route Start Last Admin Trade Name Freq PRN Reason Stop Dose Admin Sodium Chloride 1,000 mls @ 999 mls/hr 12/01/23 10:36 12/01/23 10:51 Sodium Chloride 0.9% 1000 Ml IV 12/01/23 11:36 999 mls/hr .Q1H1M STA Administration Sodium Chloride Confirm 12/01/23 10:50 Sodium Chloride 0.9% 1000 Ml Administered 12/01/23 10:51 Dose 1,000 mls @ ud .ROUTE .STK-MED ONE Lab/Rad Data: Laboratory Result Diagrams 12/01/23 10:30 12/01/23 10:30 Laboratory Results 12/01/23 12/01/23 12/01/23 Range/Units 10:30 10:30 10:30 WBC 7.0 (4.0-10.5) x10^3/uL RBC 4.37 (4.1-5.4) x10^6/uL Hgb 13.2 (12.0-16.0) g/dL Hct 39.0 (35-47) % MCV 89.2 (78-100) fL MCH 30.2 (26-32) pg MCHC 33.8 (32-36) g/dL RDW 12.7 (11.5-14.0) % Plt Count 274 (150-450) x10^3/uL MPV 9.6 (7.5-11.0) fL Gran % 54.8 (36.0-66.0) % Immature Gran % (Auto) 0.3 (0.00-0.4) % Nucleat RBC Rel Count 0.0 (0.00-0.1) % Eos # (Auto) 0.10 (0-0.5) x10^3/uL Immature Gran # (Auto) 0.02 (0.00-0.03) x10^3u/L Absolute Lymphs (auto) 2.64 (1.0-4.6) x10^3/uL Absolute Monos (auto) 0.34 (0.0-1.3) x10^3/uL Absolute Nucleated RBC 0.00 (0.00-0.01) x10^3u/L Lymphocytes % 37.9 (24.0-44.0) % Monocytes % 4.9 (0.0-12.0) % Eosinophils % 1.4 (0.00-5.0) % Basophils % 0.7 (0.0-0.4) % Absolute Granulocytes 3.82 (1.4-6.9) x10^3/uL Basophils # 0.05 (0-0.4) x10^3/uL PT 10.4 (9.4-12.5) SECONDS INR 0.95 (0.8-3.0) Sodium 139 (135-145) mmol/L Potassium 4.2 (3.5-5.1) mmol/L Chloride 107 (98-107) mmol/L Carbon Dioxide 20 L (22-30) mmol/L Anion Gap 15.8 H (5-15) MEQ/L BUN 5 L (7-17) mg/dL Creatinine 0.75 (0.52-1.04) mg/dL Estimated GFR 111.8 ML/MIN Glucose 109 H (74-106) mg/dL Calcium 9.5 (8.4-10.2) mg/dL Total Bilirubin 0.50 (0.2-1.3) mg/dL AST 18 (14-36) U/L ALT 13 (0-35) U/L Alkaline Phosphatase 53 (38-126) U/L Serum Total Protein 7.7 (6.3-8.2) g/dL Albumin 4.4 (3.5-5.0) g/dL Beta HCG, Quant 1851.5 mIU/ml - Progress Progress: re-examined Air Movement: good Progress Note: 12/01/23 10:35 This patient's medical issue is 1 of moderate to high complexity. Level complexity in the workup performed is based on review of the patient's past medical history, review of the patient's medication list, review the patient drug allergy list, history present illness and physical findings on examination. The workup in this patient includes placement of intravenous line, infusion of normal saline solution, PT/INR, CBC, CMP. Will contact Dr. Oviedo to see if there is any other testing that he wants performed. Patient states that her has the fetus. She may require a D&C. 12/01/23 10:57 I discussed this patient's medical issue with her district court justice Dr. Oviedo. The plan is to have a pelvic ultrasound performed to evaluate for retained products of conception. If there are retained products of conception, Dr. Oviedo will determine if and when the patient will go to have a D&C. If there are no retained products conception, Dr. Oviedo recommends a bolus of 500 mL LR with 20 units of Pitocin as well as a single dose of TXA. Either way, the patient will be observed in the hospital under Dr. Oviedo. 12/01/23 11:45 I interpreted the patient's laboratory data results that have returned. Patient's hemoglobin is just over 13. The rad technologist reported that on the pelvictransvaginal ultrasound there was a lot of fluid and "a lot of junk" with possible tissue and blood clots present. I discussed this with Dr. Oviedo, the patient's district court justice. He has decided he will take this patient to the operating room for a D&C. Dr. Oviedo asked me to order tranexamic 1000 mg intravenously. Blood Culture(s) Obtained: No Antibiotics given: No Counseled pt/family regarding: lab results, diagnosis, rad results Medical Desision Making - Discussion of managment Care discussed with:: PCP Reviewed:: Test results, Need for additional workup Agreed on:: Treatment plan Will see patient: in hospital - Risk of complications The pt has a high risk of morbidity or mortality based on: Need for emergency major surgery - Departure Departure Disposition: Release to OR/[facility] [place] Clinical Impression: Vaginal bleeding, Miscarriage at 8 to 28 weeks gestation, Retained products of conception Condition: Stable Critical Care Time: No Referrals: KING OVIEDO MD [Primary Care Provider] - Follow up/PCP as directed
[2023-12-01] MEDS ORDERED: Sodium Chloride 0.9% 1000 ML 1,000 ML ONE (10:50)
[2023-12-01] MEDS: Sodium Chloride 0.9% 1000 ML 1,000 ML IV STA (10:51)
[2023-12-01 10:57] LABS: Absolute Neutrophil Ct (ANC) 3.82 x10^3/uL (1.4-6.9); BASOPHIL % 0.7 % (0.0-0.4); Basophil (Absolute #) 0.05 x10^3/uL (0-0.4); Eosinophil % 1.4 % (0.00-5.0); Hemoglobin 13.2 g/dL (12.0-16.0); IMMATURE GRAN # 0.02 x10^3u/L (0.00-0.03); IMMATURE GRAN % 0.3 % (0.00-0.4); Lymphocyte (Absolute #) 2.64 x10^3/uL (1.0-4.6); Lymphocytes % 37.9 % (24.0-44.0); Mean Cell Volume 89.2 fL (78-100); Mean Corpuscular Hemoglobin 30.2 pg (26-32); Mean Corpuscular Hgb Concent. 33.8 g/dL (32-36); Mean Platelet Volume 9.6 fL (7.5-11.0); Monocyte (Absolute #) 0.34 x10^3/uL (0.0-1.3); Monocytes % 4.9 % (0.0-12.0); Neutrophil % 54.8 % (36.0-66.0); Platelet Count 274 x10^3/uL (150-450); Red Blood Count 4.37 x10^6/uL (4.1-5.4); Red Cell Distribution Width 12.7 % (11.5-14.0)
[2023-12-01 11:14] LABS: INR 0.95 (0.8-3.0); PROTIME 10.4 SECONDS (9.4-12.5)
[2023-12-01 11:30] LABS: ALBUMIN 4.4 g/dL (3.5-5.0); ANION GAP 15.8 MEQ/L (5-15); BILIRUBIN,TOTAL 0.5 mg/dL (0.2-1.3); Calcium 9.5 mg/dL (8.4-10.2); Creatinine 1 0.75 mg/dL (0.52-1.04); EST GLOMERULAR FILTRATION RATE 111.8 ML/MIN; HCG, Quantitative (Inhouse) 1851.5 mIU/ml; Potassium 4.2 mmol/L (3.5-5.1); Total Protein 7.7 g/dL (6.3-8.2)
[2023-12-01] MEDS ORDERED: TRANEXAMIC ACID 1000 MG/10 ML 1,000 MG in Sodium Chloride 0.9% 100 ML IV ONE (11:45)
[2023-12-01] MEDS ORDERED: TRANEXAMIC 1,000 MG/100ML-NACL 1,000 MG/100 ML PIGGYBACK IV ONE (11:53)
[2023-12-01] MEDS: TRANEXAMIC 1,000 MG/100ML-NACL 1,000 MG/100 ML PIGGYBACK IV ONE (12:01)
--- NOTE | 2023-12-01 12:03 | XRAY ---
Indication: Vaginal bleeding. Missed . Two-dimensional transvaginal pelvic sonogram performed. Comparison: None Retroflexed uterus measuring 10.4 x 6.5 x 7.3 cm. No intrauterine gestational sac, pole, or heart tones. Endometrial cavity demonstrates diffuse heterogeneous echogenicity, largest at the level of the fundus measuring at least 4.2 x 4.0 cm either blood products versus retained products of conception. Neither ovaries are visualized. No suspicious adnexal mass or free fluid. Impression: Endometrial cavity heterogeneous echogenicity either blood products versus retained parts of conception.
[2023-12-01] MEDS ORDERED: Versed 2 MG/2 ML Injection ONE (12:26)
[2023-12-01] MEDS ORDERED: Xylocaine-Mpf 2% 5 Ml Vial ONE (12:26)
[2023-12-01] MEDS ORDERED: DIPRIVAN 200 MG/20 ML IV ONE (12:26)
[2023-12-01] MEDS ORDERED: BRIDION 200MG/2ML IV ONE (12:26)
[2023-12-01] MEDS ORDERED: SUBLIMAZE 100 MCG/2 ML ONE (12:26)
[2023-12-01] MEDS ORDERED: Zofran 4 MG/2 ML VIAL ONE (12:26)
[2023-12-01] MEDS ORDERED: Decadron 4 MG INJ ONE (12:26)
[2023-12-01] MEDS ORDERED: ROCURONIUM BROMIDE IV ONE (12:27)
[2023-12-01] MEDS ORDERED: Lactated Ringers 1,000 ML IV ONE ×2 (12:29→13:00)
[2023-12-01] MEDS ORDERED: PHENYLEPHRINE HCL ONE (12:56)
[2023-12-01] MEDS ORDERED: Pitocin 10 UNITS/ML ONE (13:00)
--- NOTE | 2023-12-01 13:33 | PCM.HP ---
History of Present Illness - Chief Complaint Chief Complaint: incomplete miscarriage History of Present Illness: is a 28 year old female at 12 wks 3 days EGA by 10 wk ultrasound, she woke up and had some mild spotting this morning, within an hour or so she developed heavy bleeding and passage of tissue, she continued to experience very heavy bleeding and passage of blood clots so came to the ER, she had an ultrasound suggestive of retained products of conception in the fundus with continued cramping and heavy bleeding so was taken to the OR from the ER for suction dilation and curretage and being admitted for observation post-op, she was hemodynamically stable in the ER and the OR, very minimal bleeding after the procedure and in recovery had no pain. - Review of Systems Constitutional: No Fever, No Chills Respiratory: No Cough, No Short Of Breath Cardiac: No Chest Pain, No Edema, No Syncope Genitourinary Symptoms: , Vaginal Bleeding Skin: No Rash Neurological: No Dizziness, No Focal Weakness, No Sensory Changes All Other Systems: Reviewed and Negative Medications & Allergies Home Medications: Home Medication List Pnv 119/Iron Fum/Folic Acid [ 19 Tablet] 1 tab PO DAILY 12/01/23 [History Confirmed 12/01/23] Allergies/Adverse Reactions: Allergies Allergy/AdvReac Type Severity Reaction Status Date / Time Cephalosporins Allergy Verified 12/01/23 10:32 nitrofurantoin AdvReac Nausea and Verified 12/01/23 10:32 [From Macrobid] Vomiting - Past Medical History Past Medical History: No Neurological History: No Pertinent History ENT History: No Pertinent History Cardiac History: No Pertinent History Respiratory History: No Pertinent History Endocrine Medical History: No Pertinent History Musculoskelatal History: No Pertinent History GI Medical History: No Pertinent History History: No Pertinent History Pyscho-Social History: No Pertinent History Reproductive Disorders: Other Comment: D&C 01/24/16, 2020 - Female History Are you now?: Yes Gestational Age: 12 weeks - Past Surgical History Past Surgical History: Yes Neuro Surgical History: No Pertinent History Cardiac History: No Pertinent History Respiratory Surgery: No Pertinent History GI Surgical History: No Pertinent History Genitourinary Surgical Hx: No Pertinent History Musculskeletal Surgical Hx: No Pertinent History Female Surgical History: No Pertinent History, Section Other Surgical History: tubes in ears as a child. D&C 01/24/16 Significant Family History: no pertinent family hx - Social History Smoking Status: Never smoker Exposure to second hand smoke: No Alcohol: None Drug Use: none - Physical Exam Vital Signs: Vital Signs - 24 hr Temp Pulse Resp BP BP Pulse Ox 12/01/23 12:10 95/66 100 12/01/23 12:02 87 16 108/91 100 12/01/23 12:00 87 16 96/63 100 12/01/23 11:32 89 14 91/75 12/01/23 11:03 102 H 17 97/77 100 12/01/23 11:01 71 16 89/63 12/01/23 10:34 87 19 107/91 99 12/01/23 10:23 98 F 100 H 19 108/91 97 General Appearance: no apparent distress Neurologic Exam: alert, oriented x 3, cooperative Respiratory Exam: normal breath sounds, lungs clear, No respiratory distress Cardiovascular Exam: regular rate/rhythm, normal heart sounds, normal peripheral pulses Gastrointestinal/Abdomen Exam: soft, normal bowel sounds, No tenderness, No mass Extremity Exam: normal inspection, normal range of motion, pelvis stable Skin Exam: normal color, warm, dry, No rash Results - Labs Lab/Micro Results: Lab Results-Last 24 Hours 12/01/23 12/01/23 12/01/23 Range/Units 10:30 10:30 10:30 WBC 7.0 (4.0-10.5) x10^3/uL RBC 4.37 (4.1-5.4) x10^6/uL Hgb 13.2 (12.0-16.0) g/dL Hct 39.0 (35-47) % MCV 89.2 (78-100) fL MCH 30.2 (26-32) pg MCHC 33.8 (32-36) g/dL RDW 12.7 (11.5-14.0) % Plt Count 274 (150-450) x10^3/uL MPV 9.6 (7.5-11.0) fL Gran % 54.8 (36.0-66.0) % Immature Gran % (Auto) 0.3 (0.00-0.4) % Nucleat RBC Rel Count 0.0 (0.00-0.1) % Eos # (Auto) 0.10 (0-0.5) x10^3/uL Immature Gran # (Auto) 0.02 (0.00-0.03) x10^3u/L Absolute Lymphs (auto) 2.64 (1.0-4.6) x10^3/uL Absolute Monos (auto) 0.34 (0.0-1.3) x10^3/uL Absolute Nucleated RBC 0.00 (0.00-0.01) x10^3u/L Lymphocytes % 37.9 (24.0-44.0) % Monocytes % 4.9 (0.0-12.0) % Eosinophils % 1.4 (0.00-5.0) % Basophils % 0.7 (0.0-0.4) % Absolute Granulocytes 3.82 (1.4-6.9) x10^3/uL Basophils # 0.05 (0-0.4) x10^3/uL PT 10.4 (9.4-12.5) SECONDS INR 0.95 (0.8-3.0) Sodium 139 (135-145) mmol/L Potassium 4.2 (3.5-5.1) mmol/L Chloride 107 (98-107) mmol/L Carbon Dioxide 20 L (22-30) mmol/L Anion Gap 15.8 H (5-15) MEQ/L BUN 5 L (7-17) mg/dL Creatinine 0.75 (0.52-1.04) mg/dL Estimated GFR 111.8 ML/MIN Glucose 109 H (74-106) mg/dL Calcium 9.5 (8.4-10.2) mg/dL Total Bilirubin 0.50 (0.2-1.3) mg/dL AST 18 (14-36) U/L ALT 13 (0-35) U/L Alkaline Phosphatase 53 (38-126) U/L Serum Total Protein 7.7 (6.3-8.2) g/dL Albumin 4.4 (3.5-5.0) g/dL Beta HCG, Quant 1851.5 mIU/ml - Radiology Impressions Radiology Exams & Impressions: Radiology Procedures Category Date Time Status PELVIS TRANS VAGINAL [US] Stat Exams 12/01/23 10:57 Completed Assessment/Plan (1) Spontaneous with hemorrhage, incomplete Current Visit: No Status: Acute Assessment & Plan: will observe on med/surg, repeat a cbc at 16:00, if remains stable will likely discharge to home this evening. discussed signs/symptoms to watch for with her after procedure. Code(s): O03.1 - DELAYED OR EXCESSIVE HEMOR FOLLOWING INCMPL SPON (2) Retained products of conception Current Visit: Yes Status: Acute Assessment & Plan: pathology pending after dilation and currettage Code(s): TFZ1549 -
--- NOTE | 2023-12-01 14:37 | OP ---
SURGERY DATE/TIME: 12/01/2023 1239 PREOPERATIVE DIAGNOSES: 1) Incomplete miscarriage. 2) Retained products of conception with hemorrhage. POSTOPERATIVE DIAGNOSES: 1) Incomplete miscarriage. 2) Retained products of conception with hemorrhage. PROCEDURE: Suction dilatation and curettage. SURGEON: Derick Kerr M.D. ANESTHESIA: General by Saeed Zepeda CRNA. QUANTITATIVE BLOOD LOSS: 400 ml. SPECIMENS: Products of conception. DESCRIPTION OF PROCEDURE: The patient was seen in the emergency department and had an incomplete miscarriage. She had passed tissue prior to arrival and had significant hemorrhage so I was consulted from the emergency department. She was consented for suction, dilatation and curettage and taken emergently to the operating room due to bleeding. She underwent general anesthesia and then was prepped and draped in the dorsal lithotomy position. A weighted speculum was inserted and right-angle retractor was used to visually inspect the cervix which was significantly dilated with clot present in the cervical os. The anterior edge of the cervix was grasped with a single tooth tenaculum and then the clot was removed with ring forceps. The cervix was already significantly dilated enough to accept a 9 Lao suction catheter and therefore a 9 Lao suction catheter was used. The uterine cavity was curetted with 9 Lao suction catheter with significant membranes removed from the fundus which correlated with ultrasound findings. Carefully all four quadrants of the uterus were curetted with the suction catheter with membranes removed. Rough gritty texture was encountered as expected with some weeping blood as expected following removal of these tissues. It was felt at that point that all the quadrants of the uterus had a rough gritty texture with curette and anesthesia gave 20 units of Pitocin. The patient had significant improvement in her bleeding at that point with very minimal bleeding encountered. Inspected and cervix was intact after the single tooth tenaculum was removed. Bimanual exam showed good firm uterus in the pelvis. There was no active bleeding. It was felt at that point that the entire uterine cavity had been evacuated and again embryonic membranes and tissue were removed from the fundus which correlated with the ultrasound findings with retained products of conception. The patient was extubated and transferred to the recovery room in good condition with pathology pending. She will be sent to the floor for observation.
[2023-12-01] MEDS ORDERED: NORCO 5/325 MG PO PRN (15:37)
[2023-12-01] MEDS ORDERED: TYLENOL 325 MG PO PRN (15:38)
[2023-12-01] MEDS: Lactated Ringers 1,000 ML IV SCH (15:45)
[2023-12-01 16:14] LABS: Hemoglobin 10.8 g/dL (12.0-16.0); Mean Cell Volume 91.4 fL (78-100); Mean Corpuscular Hemoglobin 29.9 pg (26-32); Mean Corpuscular Hgb Concent. 32.7 g/dL (32-36); Mean Platelet Volume 9.4 fL (7.5-11.0); Platelet Count 235 x10^3/uL (150-450); Red Blood Count 3.61 x10^6/uL (4.1-5.4); Red Cell Distribution Width 12.9 % (11.5-14.0); White Blood Count 11.7 x10^3/uL (4.0-10.5)
[2023-12-01] MEDS ORDERED: Zofran 4 MG/2 ML VIAL IV PRN (16:36)
[2023-12-02 07:30] VITALS: BP 116/61; PULSE 76; RESP 18; TEMP 97.7; O2SAT 100
[2023-12-02 07:36] LABS: Hemoglobin 8.7 g/dL (12.0-16.0); Mean Cell Volume 91.5 fL (78-100); Mean Corpuscular Hemoglobin 30.6 pg (26-32); Mean Corpuscular Hgb Concent. 33.5 g/dL (32-36); Mean Platelet Volume 9.9 fL (7.5-11.0); Platelet Count 203 x10^3/uL (150-450); Red Blood Count 2.84 x10^6/uL (4.1-5.4); Red Cell Distribution Width 12.9 % (11.5-14.0); White Blood Count 7.4 x10^3/uL (4.0-10.5)
--- NOTE | 2023-12-02 09:18 | PCM.DS ---
Discharge Summary Date of Admission: 12/01/23 13:54 Admitting Physician: KING OVIEDO Primary Care Provider: KING OVIEDO Allergies Allergies Cephalosporins Allergy (Verified 12/01/23 10:32) nitrofurantoin [From Macrobid] Adverse Reaction (Verified 12/01/23 10:32) Nausea and Vomiting Hospital Summary - Hospital Course Hospital Course: patient had spontaneous miscarriage at home with massive hemorrhage prior to arrival to the ER, ultrasound showed retained products of conception. she had emergency dilation and currettage and has done very well postop, had some d izziness and fatigue so was kept overnight, hemoglobin dropped from 13.2 to 8.7, no transfusion required, she has minimal bleeding and feels well today. - Vitals & Intake/Output Vital Signs: Vital Signs Temperature 97.7 F 12/02/23 07:29 Pulse Rate 76 12/02/23 07:29 Respiratory Rate 18 12/02/23 07:29 Blood Pressure 116/61 12/02/23 07:29 O2 Sat by Pulse Oximetry 100 12/02/23 07:29 Intake & Output: Intake & Output 11/29/23 11/30/23 12/01/23 12/02/23 11:59 11:59 11:59 11:59 Intake Total 1451 Balance 1451 Weight 97.522 kg 95.4 kg - Lab Result Diagrams: 12/02/23 07:20 12/01/23 10:30 Lab Results-Last 24 Hrs: Lab Results-Last 24 Hours 12/01/23 12/01/23 12/01/23 Range/Units 10:30 10:30 10:30 WBC 7.0 (4.0-10.5) x10^3/uL RBC 4.37 (4.1-5.4) x10^6/uL Hgb 13.2 (12.0-16.0) g/dL Hct 39.0 (35-47) % MCV 89.2 (78-100) fL MCH 30.2 (26-32) pg MCHC 33.8 (32-36) g/dL RDW 12.7 (11.5-14.0) % Plt Count 274 (150-450) x10^3/uL MPV 9.6 (7.5-11.0) fL Gran % 54.8 (36.0-66.0) % Immature Gran % (Auto) 0.3 (0.00-0.4) % Nucleat RBC Rel Count 0.0 (0.00-0.1) % Eos # (Auto) 0.10 (0-0.5) x10^3/uL Immature Gran # (Auto) 0.02 (0.00-0.03) x10^3u/L Absolute Lymphs (auto) 2.64 (1.0-4.6) x10^3/uL Absolute Monos (auto) 0.34 (0.0-1.3) x10^3/uL Absolute Nucleated RBC 0.00 (0.00-0.01) x10^3u/L Lymphocytes % 37.9 (24.0-44.0) % Monocytes % 4.9 (0.0-12.0) % Eosinophils % 1.4 (0.00-5.0) % Basophils % 0.7 (0.0-0.4) % Absolute Granulocytes 3.82 (1.4-6.9) x10^3/uL Basophils # 0.05 (0-0.4) x10^3/uL PT 10.4 (9.4-12.5) SECONDS INR 0.95 (0.8-3.0) Sodium 139 (135-145) mmol/L Potassium 4.2 (3.5-5.1) mmol/L Chloride 107 (98-107) mmol/L Carbon Dioxide 20 L (22-30) mmol/L Anion Gap 15.8 H (5-15) MEQ/L BUN 5 L (7-17) mg/dL Creatinine 0.75 (0.52-1.04) mg/dL Estimated GFR 111.8 ML/MIN Glucose 109 H (74-106) mg/dL Calcium 9.5 (8.4-10.2) mg/dL Total Bilirubin 0.50 (0.2-1.3) mg/dL AST 18 (14-36) U/L ALT 13 (0-35) U/L Alkaline Phosphatase 53 (38-126) U/L Serum Total Protein 7.7 (6.3-8.2) g/dL Albumin 4.4 (3.5-5.0) g/dL Beta HCG, Quant 1851.5 mIU/ml 12/01/23 12/02/23 Range/Units 16:01 07:20 WBC 11.7 H 7.4 (4.0-10.5) x10^3/uL RBC 3.61 L 2.84 L (4.1-5.4) x10^6/uL Hgb 10.8 L 8.7 L (12.0-16.0) g/dL Hct 33.0 L 26.0 L (35-47) % MCV 91.4 91.5 (78-100) fL MCH 29.9 30.6 (26-32) pg MCHC 32.7 33.5 (32-36) g/dL RDW 12.9 12.9 (11.5-14.0) % Plt Count 235 203 (150-450) x10^3/uL MPV 9.4 9.9 (7.5-11.0) fL Gran % (36.0-66.0) % Immature Gran % (Auto) (0.00-0.4) % Nucleat RBC Rel Count (0.00-0.1) % Eos # (Auto) (0-0.5) x10^3/uL Immature Gran # (Auto) (0.00-0.03) x10^3u/L Absolute Lymphs (auto) (1.0-4.6) x10^3/uL Absolute Monos (auto) (0.0-1.3) x10^3/uL Absolute Nucleated RBC (0.00-0.01) x10^3u/L Lymphocytes % (24.0-44.0) % Monocytes % (0.0-12.0) % Eosinophils % (0.00-5.0) % Basophils % (0.0-0.4) % Absolute Granulocytes (1.4-6.9) x10^3/uL Basophils # (0-0.4) x10^3/uL PT (9.4-12.5) SECONDS INR (0.8-3.0) Sodium (135-145) mmol/L Potassium (3.5-5.1) mmol/L Chloride (98-107) mmol/L Carbon Dioxide (22-30) mmol/L Anion Gap (5-15) MEQ/L BUN (7-17) mg/dL Creatinine (0.52-1.04) mg/dL Estimated GFR ML/MIN Glucose (74-106) mg/dL Calcium (8.4-10.2) mg/dL Total Bilirubin (0.2-1.3) mg/dL AST (14-36) U/L ALT (0-35) U/L Alkaline Phosphatase (38-126) U/L Serum Total Protein (6.3-8.2) g/dL Albumin (3.5-5.0) g/dL Beta HCG, Quant mIU/ml - Radiology Exams Ordered Rad Exams-Entire Visit: Radiology Procedures Category Date Time Status PELVIS TRANS VAGINAL [US] Stat Exams 12/01/23 10:57 Completed Discharge Exam General Appearance: no apparent distress Neurologic Exam: alert, oriented x 3 Eye Exam: PERRL, EOMI Respiratory Exam: normal breath sounds, lungs clear, No respiratory distress Cardiovascular Exam: regular rate/rhythm, normal heart sounds Gastrointestinal/Abdomen Exam: soft, No tenderness, No mass Extremity Exam: normal inspection, normal range of motion Skin Exam: normal color, warm, dry Final Diagnosis/Problem List - Final Discharge Diagnosis/Problem (1) Spontaneous with hemorrhage, incomplete Current Visit: No Status: Acute Code(s): O03.1 - DELAYED OR EXCESSIVE HEMOR FOLLOWING INCMPL SPON (2) Retained products of conception Current Visit: Yes Status: Acute Code(s): ABA9947 - - Discharge Disposition: Home, Self-Care Condition: Stable Prescriptions: New Ferrous Sulfate 325 mg [Feosol 325 mg] 325 mg PO DAILY #30 tablet Discontinued Pnv 119/Iron Fum/Folic Acid [ 19 Tablet] 1 tab PO DAILY Follow up with: KING OVIEDO MD [Primary Care Provider] - 12/08/23 2:15 pm
== END 2023-12-02 10:10 | disposition home or self-care (01) ==
LOC: ED 10:22 → MED SURG 13:54
PROVIDERS: ADMIT Family Medicine; ATTEND Family Medicine
DX: O03.1 Delayed or excessive hemorrhage following incomplete spontaneous abortion (principal); O03.4 Incomplete spontaneous abortion without complication; Z20.828 Contact with and (suspected) exposure to other viral communicable diseases
CPT/HCPCS: 36000; 36415; 58120; 76830; 80053; 84702; 85025; 85027; 85610; 99284; G0378; J1100; J2250; J2371; J2405; J2590; J2704; J3010

== ENCOUNTER 2024-05-10 11:54 | Emergency (ER) | payer OTHER ==
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
[2024-05-10 12:35] VITALS: TEMP 98.6
[2024-05-10 12:38] LABS: Absolute Neutrophil Ct (ANC) 1.78 x10^3/uL (1.56-6.13); BASOPHIL % 1.3 % (0.1-1.2); Basophil (Absolute #) 0.05 x10^3/uL (0.01-0.08); Eosinophil % 1.1 % (0.7-5.8); Eosinophil (Absolute #) 0.04 x10^3/uL (0.04-0.36); Hematocrit 34.6 % (34.1-44.9); Hemoglobin 10.3 g/dL (11.2-15.7); IMMATURE GRAN # 0.01 x10^3u/L (0.001-0.031); IMMATURE GRAN % 0.3 % (0.001-0.429); Lymphocyte (Absolute #) 1.58 x10^3/uL (1.18-3.74); Lymphocytes % 42.4 % (19.3-51.7); Mean Cell Volume 78.8 fL (79.4-94.8); Mean Corpuscular Hemoglobin 23.5 pg (25.6-32.2); Mean Corpuscular Hgb Concent. 29.8 g/dL (32.2-35.5); Monocyte (Absolute #) 0.27 x10^3/uL (0.24-0.86); Monocytes % 7.2 % (4.7-12.5); Neutrophil % 47.7 % (34.0-71.1); Platelet Count 267 x10^3/uL (182-369); Red Blood Count 4.39 x10^6/uL (3.93-5.22); Red Cell Distribution Width 16.4 % (11.7-14.4); White Blood Count 3.7 x10^3/uL (3.98-10.04)
[2024-05-10 12:47] LABS: HCG SERUM TEST NEGATIVE (NEGATIVE)
[2024-05-10 12:49] LABS: ACETAMINOPHEN < 10 ug/ml (10-30); ALBUMIN 4.6 g/dL (3.5-5.0); ALKALINE PHOSPHATASE 48 U/L (38-126); ANION GAP 14.6 MEQ/L (5-15); BLOOD UREA NITROGEN 10 mg/dL (7-17); CHLORIDE 105 mmol/L (98-107); Calcium 9.5 mg/dL (8.4-10.2); Carbon Dioxide 23 mmol/L (22-30); Creatinine 1 0.93 mg/dL (0.52-1.04); EST GLOMERULAR FILTRATION RATE 85.9 ML/MIN; ETHYL ALCOHOL < 10 mg/dL (0-10); Glucose 96 mg/dL (74-106); SALICYLATE < 1.0 mg/dL (2-20); SGOT/AST 24 U/L (14-36); SGPT/ALT 18 U/L (0-35); SODIUM 139 mmol/L (135-145)
[2024-05-10 13:00] LABS: Appearance Clear (Clear); Bacteria Rare /HPF (None Seen); Bilirubin Negative (Negative); Blood Negative (Negative); Epithelial Cells Few /HPF (None Seen); Glucose, Urine Negative (Negative); Hyaline Casts NONE SEEN /LPF (0-2); Ketones Trace (Negative); Leukocyte Esterase Small (Negative); Nitrite Negative (Negative); Ph 5.5 (4.6-8.0); Protein,Urine Dip Negative (Negative); RBC 0-2 /HPF (0-5); Specific Gravity 1.025 (1.005-1.030); Urobilinogen 0.2 mg/dL (0.2)
[2024-05-10 13:03] LABS: ADD URINE CULTURE? YES (NO)
[2024-05-10 13:07] LABS: Amphetamine,Urine NEGATIVE (NEGATIVE); Barbiturate,Urine NEGATIVE (NEGATIVE); Benzodiazepine,Urine NEGATIVE (NEGATIVE); Cocaine,Urine NEGATIVE (NEGATIVE); Methadone,Urine NEGATIVE (NEGATIVE); Opiate,Urine NEGATIVE (NEGATIVE); PCP,Urine NEGATIVE (NEGATIVE); THC,Urine NEGATIVE (NEGATIVE)
[2024-05-10 13:13] LABS: INFLUENZA A NEGATIVE (NEGATIVE); INFLUENZA B NEGATIVE (NEGATIVE); RESPIRATORY SYNCTIAL VIRUS NEGATIVE (NEGATIVE); SARS-CoV-2 Xpert Express NEGATIVE (NEGATIVE)
[2024-05-10] MEDS ORDERED: Levofloxacin 500 MG Tablet ONE (17:33)
[2024-05-10] MEDS: Levofloxacin 500 MG Tablet PO ONE (17:34)
[2024-05-10 20:08] VITALS: BP 100/75; PULSE 83; RESP 17; O2SAT 99
== END 2024-05-10 20:15 | disposition home or self-care (01) ==
LOC: ED 11:54
DX: F43.23 Adjustment disorder with mixed anxiety and depressed mood (principal); N39.0 Urinary tract infection, site not specified; Z63.0 Problems in relationship with spouse or partner
CPT/HCPCS: 0241U; 36415; 80053; 80143; 80179; 80307; 81001; 82077; 84703; 85025; 87086; 90791; 93005; 94760; 99284; A9270-GY